=== PATIENT | male | born 1960 | race American Indian/Alaskan Native ===

== ENCOUNTER 2019-01-29 14:42 | Emergency (ER) | payer BC ==
[2019-01-29] MEDS ORDERED: CATAPRES PO ONE (15:29)
[2019-01-29 16:12] VITALS: BP 161/110
--- NOTE | 2019-01-29 16:20 | Emergency Department Report ---
ED General Adult HPI - General Chief complaint: High BP Stated complaint: HBP/DOC ORDERED Time Seen by Provider: 01/29/19 16:12 Source: patient Mode of arrival: Ambulatory Limitations: No Limitations - History of Present Illness Initial comments: 58 y/o male comes in for elevated blood pressure. Patient was schedule for a colonoscopy and his blood pressure was elevated and was sent to ER for evaluation. Patient reports that he did not take his blood pressure medication his morning. Patient denies any TODD, Chest pain or SOB. Severity scale (0 -10): 0 - Related Data Allergies Allergy/AdvReac Type Severity Reaction Status Date / Time No Known Allergies Allergy Unverified 01/29/19 14:43 ED Review of Systems ROS: Stated complaint: HBP/DOC ORDERED Other details as noted in HPI ED Past Medical Hx - Past Medical History Previous Medical History?: Yes Hx Hypertension: Yes - Surgical History Past Surgical History?: Yes Additional Surgical History: hernia repair - Social History Smoking Status: Never Smoker Substance Use Type: None ED Physical Exam - General Limitations: No Limitations ED Course Vital Signs 01/29/19 01/29/19 01/29/19 15:21 15:32 16:09 Temperature 98 F Pulse Rate 64 64 70 Respiratory 20 16 Rate Blood Pressure 183/112 183/112 Blood Pressure 161/110 [Right] O2 Sat by Pulse 98 97 Oximetry ED Medical Decision Making - Medical Decision Making 58 y/o male comes in for elevated blood pressure. Patient was schedule for a colonoscopy and his blood pressure was elevated and was sent to ER for evaluation. Patient reports that he did not take his blood pressure medication his morning. Patient denies any TODD, Chest pain or SOB. Patient was given Clonidine 0.1mg. Patient blood pressure improved. Instructed patient to continue taking his medication. Critical care attestation.: If time is entered above; I have spent that time in minutes in the direct care of this critically ill patient, excluding procedure time. ED Disposition Clinical Impression: HTN (hypertension) Qualifiers: Hypertension type: unspecified Qualified Code(s): I10 - Essential (primary) hypertension Disposition: DC-01 TO HOME OR SELFCARE Is pt being admited?: No Does the pt Need Aspirin: No Condition: Stable Instructions: Hypertension (ED) Additional Instructions: Take medication as prescribed. Referrals: NASREEN SEN MD [Primary Care Provider] - 3-5 Days Your,Primary Care provider [Other] - 3-5 Days
== END 2019-01-29 16:30 | disposition home or self-care (01) ==
LOC: ED 14:42
DX: I10 Essential (primary) hypertension (principal); Z98.890 Other specified postprocedural states
CPT/HCPCS: 99282

== ENCOUNTER 2019-08-07 00:14 | Inpatient (IN) | payer BC, OTHER ==
--- NOTE | 2019-08-07 00:42 | Emergency Department Report ---
ED Neuro Deficit HPI - General Chief Complaint: Neuro Symptoms/Deficit Stated Complaint: FACIAL DROOP/DISORIENTED Time Seen by Provider: 08/07/19 00:35 Source: patient Mode of arrival: Ambulatory Limitations: Physical Limitation - History of Present Illness Initial Comments: 59-year-old male with a past medical history of hypertension presents to [facility] with stroke symptoms. 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 He slept all day and did not feel well so he continued to sleep throughout the night and did not go to work that evening. Tuesday the he also slept all day and did not wake up till noon when he was noted to have nausea, vomiting, and off balance. Patient did try to go to work and at 11 PM the job called to come pick him up because he was not acting right. then noted left-sided facial droop when she picked him up from work. Code stroke called in triage upon patient's evaluation - Related Data Allergies/Adverse Reactions: Allergies Allergy/AdvReac Type Severity Reaction Status Date / Time No Known Allergies Allergy Unverified 01/29/19 14:43 ED Review of Systems ROS: Stated complaint: FACIAL DROOP/DISORIENTED Other details as noted in HPI Comment: All other systems reviewed and negative ED Past Medical Hx - Past Medical History Hx Hypertension: Yes - Surgical History Additional Surgical History: hernia repair - Social History Smoking Status: Never Smoker ED Neuro Physical Exam - General Limitations: Physical Limitation Suspected Stroke: Yes - NIHSS Assessment Interval: Baseline 1a. Level of Consciousness: alert/keenly responsive 1b. LOC Questions: answers both correctly 1c. LOC Commands: performs tasks correctly 2. Best Gaze: normal 3. Visual: no visual loss 4. Facial Palsy: minor paralysis 5b. Motor Arm Right: no drift 5a. Motor Arm Left: drift 6a. Motor Leg Left: drift 6b. Motor Leg Right: no drift 7. Limb Ataxia: absent 8. Sensory: normal 9. Best Language: no aphasia 10. Dysarthria: mild/moderate dysarthria 11. Extinction/Inattention: no abnormality Total Score: 4 Stroke Severity: Minor Stroke - Other Other exam information: General: No acute distress Head: Atraumatic Eyes: normal appearance, pupils equal reactive to light, extraocular movements intact, ENT: Moist mucous membranes, Neck: Normal appearance, no midline tenderness Chest: Clear to auscultation bilaterally CV: Regular rate and rhythm Abdomen: Soft, normal bowel sounds, nontender, nondistended, no rebound or guarding Back: Normal inspection Extremity: Normal inspection infection, full range of motion Neuro: Alert O x 3, see NIHSS Psych: Appropriate behavior Skin: No rash ED Course Vital Signs 08/07/19 00:30 Temperature 98.3 F Pulse Rate 83 Respiratory 13 Rate Blood Pressure 144/94 [Left] O2 Sat by Pulse 97 Oximetry - Lab Data Result diagrams: 08/07/19 00:42 08/07/19 00:42 Lab Results 08/07/19 08/07/19 08/07/19 Range/Units 00:33 00:42 00:42 WBC 12.3 H (4.5-11.0) K/mm3 RBC 5.45 H (3.65-5.03) M/mm3 Hgb 16.0 H (11.8-15.2) gm/dl Hct 46.3 H (35.5-45.6) % MCV 85 (84-94) fl MCH 29 (28-32) pg MCHC 35 H (32-34) % RDW 13.5 (13.2-15.2) % Plt Count 216 (140-440) K/mm3 Lymph % (Auto) 9.0 L (13.4-35.0) % Winkler % (Auto) 3.7 (0.0-7.3) % Eos % (Auto) 0.0 (0.0-4.3) % Baso % (Auto) 0.4 (0.0-1.8) % Lymph # 1.1 L (1.2-5.4) K/mm3 Winkler # 0.5 (0.0-0.8) K/mm3 Eos # 0.0 (0.0-0.4) K/mm3 Baso # 0.0 (0.0-0.1) K/mm3 Seg Neutrophils % 86.9 H (40.0-70.0) % Seg Neutrophils # 10.7 H (1.8-7.7) K/mm3 PT 14.1 (12.2-14.9) Sec. INR 1.08 (0.87-1.13) APTT 24.9 (24.2-36.6) Sec. Thrombin Time 15.7 (15.1-19.6) Sec. Sodium (137-145) mmol/L Potassium (3.6-5.0) mmol/L Chloride (98-107) mmol/L Carbon Dioxide (22-30) mmol/L Anion Gap mmol/L BUN (9-20) mg/dL Creatinine (0.8-1.5) mg/dL Estimated GFR ml/min BUN/Creatinine Ratio % Glucose (75-100) mg/dL POC Glucose 249 H (70-105) Calcium (8.4-10.2) mg/dL Troponin T (0.00-0.029) ng/mL 08/07/19 Range/Units 00:42 WBC (4.5-11.0) K/mm3 RBC (3.65-5.03) M/mm3 Hgb (11.8-15.2) gm/dl Hct (35.5-45.6) % MCV (84-94) fl MCH (28-32) pg MCHC (32-34) % RDW (13.2-15.2) % Plt Count (140-440) K/mm3 Lymph % (Auto) (13.4-35.0) % Winkler % (Auto) (0.0-7.3) % Eos % (Auto) (0.0-4.3) % Baso % (Auto) (0.0-1.8) % Lymph # (1.2-5.4) K/mm3 Winkler # (0.0-0.8) K/mm3 Eos # (0.0-0.4) K/mm3 Baso # (0.0-0.1) K/mm3 Seg Neutrophils % (40.0-70.0) % Seg Neutrophils # (1.8-7.7) K/mm3 PT (12.2-14.9) Sec. INR (0.87-1.13) APTT (24.2-36.6) Sec. Thrombin Time (15.1-19.6) Sec. Sodium 139 (137-145) mmol/L Potassium 4.2 (3.6-5.0) mmol/L Chloride 98.3 (98-107) mmol/L Carbon Dioxide 26 (22-30) mmol/L Anion Gap 19 mmol/L BUN 16 (9-20) mg/dL Creatinine 1.4 (0.8-1.5) mg/dL Estimated GFR > 60 ml/min BUN/Creatinine Ratio 11 % Glucose 264 H (75-100) mg/dL POC Glucose (70-105) Calcium 9.8 (8.4-10.2) mg/dL Troponin T < 0.010 (0.00-0.029) ng/mL - EKG Data -: EKG Interpreted by Me (possible afib rate 88 vs sinus with pac's, will repeat) EKG shows normal: ST-T waves (no stemi) - Radiology Data Radiology results: report reviewed CT HEAD WITHOUT CONTRAST INDICATION : Acute right-sided weakness. Slurred speec h. Possible stroke. TECHNIQUE: Axial, coronal and sagittal CT imaging was performed from the skull apex through the skull base without contrast. All CT scans at this location are performed using CT dose reduction for ALARA by means of automated exposure control. COMPARISON: None available. FINDINGS: PARENCHYMA: A round hypodensity is seen along the right thalamus measuring 1.8 x 1.8 cm. No other acute large territorial infarction is noted. No hemorrhage, extra-axial collection or midline shift is seen. VENTRICLES: Symmetric and normal in size. SOFT TISSUES: No significant abnormality of the included soft tissues/orbits. BONES: No acute osseous abnormality. SINUSES: No significant abnormality. ADDITIONAL FINDINGS: None. IMPRESSION: 1. Indeterminate abnormality along the right thalamus could represent an area of ischemia of uncertain age. An MRI of the brain with and without contrast may be helpful for further evaluation. 2. No other acute intracranial abnormality. - Medical Decision Making ct head with abnormality which could represent subacute ischemia. No hemorrhage reported. Aspirin provided. Patient not a TPA candidate or candidate for intervention at this time. Case discussed with neurologist. See neurology note. Hospitalist informed for admission ekg with possible afib, pt is rate controlled and cant receive heparin due to subacute cva, case rediscussed with hospitalist, cardiology consult will be ordered for am. - Differential Diagnosis CVA, ICH, tumor - Thrombolytic Inclusion/Exclusion Thrombolytic Exclusion Criteria: Symptom Onset > 3 Hours Critical Care Time: No Critical care attestation.: If time is entered above; I have spent that time in minutes in the direct care of this critically ill patient, excluding procedure time. ED Disposition Clinical Impression: CVA (cerebral vascular accident) Disposition: DC-09 OP ADMIT IP TO THIS HOSP Is pt being admited?: Yes Does the pt Need Aspirin: Yes Condition: Stable Time of Disposition: 01:35 (Dr wyatt/hosp)
[2019-08-07 00:47] LABS: Basophils % (Auto) 0.4 % (0.0-1.8); Hematocrit 46.3 % (35.5-45.6); Lymphocytes # (Auto) 1.1 K/mm3 (1.2-5.4); Mean Corpuscular HGB Conc 35 % (32-34); Mean Corpuscular Volume 85 fl (84-94); Monocytes # (Auto) 0.5 K/mm3 (0.0-0.8); Monocytes % (Auto) 3.7 % (0.0-7.3); Platelet Count 216 K/mm3 (140-440); Red Blood Count 5.45 M/mm3 (3.65-5.03); Red Cell Distribution Width 13.5 % (13.2-15.2)
[2019-08-07 00:58] LABS: INR 1.08 (0.87-1.13)
[2019-08-07 00:59] LABS: Partial Thromboplastin Time 24.9 Sec. (24.2-36.6); Thrombin Time 15.7 Sec. (15.1-19.6)
--- NOTE | 2019-08-07 01:02 | Cat Scan Report ---
CT HEAD WITHOUT CONTRAST INDICATION : Acute right-sided weakness. Slurred speech. Possible stroke. TECHNIQUE: Axial, coronal and sagittal CT imaging was performed from the skull apex through the skul l base without contrast. All CT scans at this location are performed using CT dose reduction for ALA RA by means of automated exposure control. COMPARISON: None available. FINDINGS: PARENCHYMA: A round hypodensity is seen along the right thalamus measuring 1.8 x 1.8 cm. No other ac [place] large territorial infarction is noted. No hemorrhage, extra-axial collection or midline shift is seen. VENTRICLES: Symmetric and normal in size. SOFT TISSUES: No significant abnormality of the included soft tissues/orbits. BONES: No acute osseous abnormality. SINUSES: No significant abnormality. ADDITIONAL FINDINGS: None. IMPRESSION: 1. Indeterminate abnormality along the right thalamus could represent an area of ischemia of uncerta in age. An MRI of the brain with and without contrast may be helpful for further evaluation. 2. No other acute intracranial abnormality. CRITICAL RESULT: Time of Discovery (CLIENT EXPERIENCE ADMINISTRATOR/CDT): 23:55 Time of Communication (CLIENT EXPERIENCE ADMINISTRATOR/CDT): 23:58 Licensed Practitioner Receiving Report: Dr. Dutton Read Back Performed: Yes. Signer Name: Alfonzo Rivera MD Signed: 08/07/2019 12:58 AM Workstation Name: [id number]
[2019-08-07 01:04] LABS: BUN/Creatinine Ratio 11; Blood Urea Nitrogen 16 mg/dL (9-20); Calcium 9.8 mg/dL (8.4-10.2); Hemolysis Index 7
--- NOTE | 2019-08-07 01:06 | Emergency Department Report ---
[place] [facility] - Documentation Documentation: [facility] Date of Service: 08/07/2019 00:26:11 Impression: Small Vessel Infarct Comments: Pt presents outside the tPA and TAM treatment window. His LKW was Tuesday morning. Clinical syndrome correlates to the abnormality seen on his HCT in the right thalamus. Stroke espinal is recommended along with MRI w/wo gado to r/o underlying neoplasm vs stroke. Mechanism of Stroke: Not Clear Metrics: Last Known Well: 08/05/2019 07:00:00 [employer] Notification Time: 08/07/2019 00:25:41 Arrival Time: 08/07/2019 00:22:00 Stamp Time: 08/07/2019 00:26:11 Time First Login Attempt: 08/07/2019 00:30:15 Video Start Time: 08/07/2019 00:30:15 Symptoms: left sided weakness NIHSS Start Assessment Time: 08/07/2019 00:31:19 Patient is not a candidate for tPA. Patient was not deemed candidate for tPA thrombolytics because of Last Well Known Above 4.5 Hours. Video End Time: 08/07/2019 00:43:07 CT head was reviewed and results were: right thalamic lesion, unclear etiology, possible infarct Presentation is not suggestive of Large Vessel Occlusive disease. Advanced imaging was not obtained as the presentation was not suggestive of Large Vessel Occlusive Disease. ED Physician notified of diagnostic impression and management plan on 08/07/2019 00:55:30 Our recommendations are outlined below. Recommendations: Activate Stroke Protocol Admission/Order Set Stroke/Telemetry Floor Neuro Checks Bedside Swallow Eval DVT Prophylaxis IV Fluids, Normal Saline Head of Bed Below 30 Degrees Euglycemia and Avoid Hyperthermia (PRN Acetaminophen) Initiate Aspirin 81 MG Daily Recommended Scan: MRI Head with and Without Contrast Lipid Panel to Be Obtained, if Not Done in the Last Three Months Therapies: Physical Therapy, Occupational Therapy, Speech Therapy Assessment When Applicable Dysphaghia Screen: Swallow Evaluation, Bedside NPO Until Swallow Evaluation DVT prophylaxis: Choice of Primary Team Disposition: Follow up with Teleneurology Follow up Sign Out: Discussed with Emergency Department Provider History of Present Illness: Patient is a 59 year old Male. 59 yo M with h/o HTN on baby aspirin PW left sided weakness. The patient had noted his BP had been high on Tuesday. 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 He slept all day and was unable to get out of bed for his Tuesday evening shift. He eventually was able to get out of bed this morning around noon time and his family noted he was falling and had N/V. He made it to work on Tuesday night but he could not drive and his sent him in an Uber. When he got to work, the people there called his to tell her he looked unwell. She then came to pick him up and take him to the ED. CT head was reviewed. Examination: BP(144/94), Blood Glucose(239) 1A: Level of Consciousness - Alert; keenly responsive + 0 1B: Ask Month and Age - Both Questions Right + 0 1C: Blink Eyes & Squeeze Hands - Performs Both Tasks + 0 2: Test Horizontal Extraocular Movements - Normal + 0 3: Test Visual Sotom[place]or - No Visual Loss + 0 4: Test Facial Palsy (Use Grimace if Obtunded) - Minor paralysis (flat nasolabial fold, smile asymmetry) + 1 5A: Test Left Arm Motor Drift - Drift, but doesn't hit bed + 1 5B: Test Right Arm Motor Drift - No Drift for 10 Seconds + 0 6A: Test Left Leg Motor Drift - Drift, but doesn't hit bed + 1 6B: Test Right Leg Motor Drift - No Drift for 5 Seconds + 0 7: Test Limb Ataxia (FNF/Heel-Lugo) - No Ataxia + 0 8: Test Sensation - Normal; No sensory loss + 0 9: Test Language/Aphasia - Normal; No aphasia + 0 10: Test Dysarthria - Mild-Moderate Dysarthria: Slurring but can be understood + 1 11: Test Extinction/Inattention - No abnormality + 0 NIHSS Score: 4 Patient was informed the Neurology Consult would happen via TeleHealth consult by way of interactive audio and video telecommunications and consented to receiving care in this manner. Due to the immediate potential for life-threatening deterioration due to underlying acute neurologic illness, I spent 35 minutes providing critical care. This time includes time for face to face visit via telemedicine, review of medical records, imaging studies and discussion of findings with providers, the patient and/or family. Dr Janna Sweeney [facility] Case [id number]
[2019-08-07] MEDS ORDERED: ASPIRIN 325 MG TAB PO ONE (01:14)
[2019-08-07] MEDS ORDERED: ACETAMINOPHEN 325 MG TAB PO PRN (02:33)
[2019-08-07] MEDS ORDERED: MAGNESIUM HYDROXIDE (MOM) ORAL LIQD UDC PO PRN (02:33)
[2019-08-07] MEDS ORDERED: ONDANSETRON 4 MG/2 ML INJ IV PRN (02:33)
[2019-08-07] MEDS ORDERED: DEXTROSE 50% IN WATER (25GM) 50 ML SYRINGE IV PRN (02:39)
[2019-08-07] MEDS ORDERED: hydrALAZINE 20 MG/1 ML INJ IV PRN (02:40)
[2019-08-07] MEDS ORDERED: SODIUM CHLORIDE 0.45% 1000 ML 1,000 ML IV SCH (03:00)
--- NOTE | 2019-08-07 03:04 | History and Physical Report ---
<BERNARDA CAMACHO - Last Filed: 08/07/19 03:00> History of Present Illness Date of examination: 08/07/19 Date of admission: 08/07/2019 Chief complaint: Left-sided facial droop, suspicion of stroke History of present illness: 59-year-old -[place] male with history of hypertension who presents to [facility] ED with complaints of left facial droop and suspicion for stroke. Patient's is present at bedside and has assisted with providing history. According to patient's patient got him from work around 7 AM Tuesday (08/05/2019) morning in his usual state of health. He complains of not feeling well so he stayed in the bed, rested, and called out of work that night. Patient woke up around noon on Tuesday (08/06/2019) and complained of nausea, vomiting, and feeling like his balance was off. Despite feeling ill patient decided to go to work. Patient's job called around 11 PM and stated that he was not acting like his normal self. Patient's went out to his job to pick him up and it was at this time that his noticed that he had a left sided facial droop. Set of taking patient home patient was transferred to our facility for further evaluation and treatment. At the time of my examination patient is sitting up in bed. He is able to maintain conversation and follow instructions. He displays 5/5 motor strength with no drift. Patient has left-sided facial droop. Patient was evaluated by telemetry neurology and recommendations appreciated. Will admit for further evaluation and treatment. Past History Past Medical History: hypertension Past Surgical History: hernia repair Social history: Family history: no significant family history Medications and Allergies Allergies Allergy/AdvReac Type Severity Reaction Status Date / Time No Known Allergies Allergy Unverified 01/29/19 14:43 Active Meds: Active Medications Acetaminophen (Tylenol) 650 mg PO Q4H PRN PRN Reason: Pain, Mild (1-3) Amlodipine Besylate (Amlodipine) 10 mg PO QDAY [facility] Aspirin (Baby Aspirin) 81 mg PO QDAY GL[facility] Atorvastatin Calcium (Lipitor) 40 mg PO QHS [facility] Dextrose (D50w (25gm) Syringe) 50 ml IV Q30MIN PRN; Protocol PRN Reason: Hypoglycemia Heparin Sodium (Porcine) (Heparin) 5,000 unit SUB-Q Q12HR GLORY Hydralazine HCl (Apresoline) 10 mg IV Q4HR PRN PRN Reason: Blood Pressure Sodium Chloride (Nacl 0.45% 1000 Ml) 1,000 mls @ 75 mls/hr IV DIRECT GLORY Stop: 08/07/19 11:00 Insulin Human Lispro (Humalog) 0 unit SUB-Q ACHS GLORY; Protocol Magnesium Hydroxide (Milk Of Magnesia) 30 ml PO Q4H PRN PRN Reason: Constipation Ondansetron HCl (Zofran) 4 mg IV Q8H PRN PRN Reason: Nausea And Vomiting Sodium Chloride (Sodium Chloride Flush Syringe 10 Ml) 10 ml IV PRN PRN PRN Reason: LINE FLUSH Review of Systems All systems: negative Eyes: right: blurred vision Cardiovascular: high blood pressure Gastrointestinal: nausea, vomiting Neurological: gait dysfunction, other (Left-sided facial droop) Exam - Physical Exam Narrative exam: Physical exam General appearance: Present: No acute distress, alert and oriented 3, well- nourished, adult male - EENT Eyes: Present: PERRL, EOM intact ENT: hearing intact, normal dentition, left-sided facial droop - Neck Neck: Present: supple, normal ROM - Respiratory Respiratory effort: Non-labored Respiratory: Clear throughout - Cardiovascular Heart rate: 83 (bpm) Rhythm: Sinus rhythm Heart Sounds: Present: S1 & S2. Absent: rub, click - Extremities Extremities: no ischemia, pulses intact, - Peripheral Assessment Peripheral Pulses: within normal limits - Abdominal General gastrointestinal: soft, non-tender, normal bowel sounds - Integumentary Integumentary: Present: warm, dry - Musculoskeletal Musculoskeletal: Able to move all extremities, 5/5 motor strength in all extremities -Neurological Neurological: CN II-XII intact - Psychiatric Psychiatric: Appropriate for situation ,cooperative - Constitutional Vitals: Temp Pulse Resp BP Pulse Ox 98.3 F 82 12 155/98 100 08/07/19 00:30 08/07/19 02:30 08/07/19 02:30 08/07/19 02:30 08/07/19 02:30 Results - Labs CBC & Chem 7: 08/07/19 00:42 08/07/19 00:42 Labs: Laboratory Last Values WBC 12.3 K/mm3 (4.5-11.0) H 08/07/19 00:42 RBC 5.45 M/mm3 (3.65-5.03) H 08/07/19 00:42 Hgb 16.0 gm/dl (11.8-15.2) H 08/07/19 00:42 Hct 46.3 % (35.5-45.6) H 08/07/19 00:42 MCV 85 fl (84-94) 08/07/19 00:42 MCH 29 pg (28-32) 08/07/19 00:42 MCHC 35 % (32-34) H 08/07/19 00:42 RDW 13.5 % (13.2-15.2) 08/07/19 00:42 Plt Count 216 K/mm3 (140-440) 08/07/19 00:42 Lymph % (Auto) 9.0 % (13.4-35.0) L 08/07/19 00:42 [place] % (Auto) 3.7 % (0.0-7.3) 08/07/19 00:42 Eos % (Auto) 0.0 % (0.0-4.3) 08/07/19 00:42 Baso % (Auto) 0.4 % (0.0-1.8) 08/07/19 00:42 Lymph # 1.1 K/mm3 (1.2-5.4) L 08/07/19 00:42 [place] # 0.5 K/mm3 (0.0-0.8) 08/07/19 00:42 Eos # 0.0 K/mm3 (0.0-0.4) 08/07/19 00:42 Baso # 0.0 K/mm3 (0.0-0.1) 08/07/19 00:42 Seg Neutrophils % 86.9 % (40.0-70.0) H 08/07/19 00:42 Seg Neutrophils # 10.7 K/mm3 (1.8-7.7) H 08/07/19 00:42 PT 14.1 Sec. (12.2-14.9) 08/07/19 00:42 INR 1.08 (0.87-1.13) 08/07/19 00:42 APTT 24.9 Sec. (24.2-36.6) 08/07/19 00:42 Thrombin Time 15.7 Sec. (15.1-19.6) 08/07/19 00:42 Sodium 139 mmol/L (137-145) 08/07/19 00:42 Potassium 4.2 mmol/L (3.6-5.0) 08/07/19 00:42 Chloride 98.3 mmol/L (98-107) 08/07/19 00:42 Carbon Dioxide 26 mmol/L (22-30) 08/07/19 00:42 Anion Gap 19 mmol/L 08/07/19 00:42 BUN 16 mg/dL (9-20) 08/07/19 00:42 Creatinine 1.4 mg/dL (0.8-1.5) 08/07/19 00:42 Estimated GFR > 60 ml/min 08/07/19 00:42 BUN/Creatinine Ratio 11 % 08/07/19 00:42 Glucose 264 mg/dL (75-100) H 08/07/19 00:42 POC Glucose 249 (70-105) H 08/07/19 00:33 Calcium 9.8 mg/dL (8.4-10.2) 08/07/19 00:42 Troponin T < 0.010 ng/mL (0.00-0.029) 08/07/19 00:42 - Imaging and Cardiology Imaging and Cardiology: CT Head: FINDINGS: PARENCHYMA: A round hypodensity is seen along the right thalamus measuring 1.8 x 1.8 cm. No other acute large territorial infarction is noted. No hemorrhage, extra-axial collection or midline shift is seen. VENTRICLES: Symmetric and normal in size. SOFT TISSUES: No significant abnormality of the included soft tissues/orbits. BONES: No acute osseous abnormality. SINUSES: No significant abnormality. ADDITIONAL FINDINGS: None. IMPRESSION: 1. Indeterminate abnormality along the right thalamus could represent an area of ischemia of uncertain age. An MRI of the brain with and without contrast may be helpful for further evaluation. 2. No other acute intracranial abnormality. Assessment and Plan Assessment and plan: 59-year-old -[place] male with history of hypertension who presents to [facility] ED with complaints of left facial droop and suspicion for stroke. CVA -CT Head shows Indeterminate abnormality along the right thalamus could represent an area of ischemia of uncertain age. -Tele-Neurology consulted; recommendations appreciated -Not a candidate for TPA, last known normal greater than 4.5 hours ago -MRI Head, bilateral carotid Doppler, Echo pending -Troponin negative x1, will continue to trend -Neurology consulted -Neuro Checks -PT/OT eval pending -Lipid panel pending -Start ASA and Statin -Continue supportive care Hypertensive urgency -BP on admission 183/112 -Hx Hypertension malignant -Continue to monitor BP -Resume home antihypertensive meds to optimize BP once medication reconciliation has been updated -IV antihypertensive when necessary Dehydration -Hemoglobin 16.9 -Start IVF Leukocytosis -WBC on admission 12.3 -Likely inflammatory response -Afebrile -Will hold off on starting abx for now -Continue to monitor CBC DVT PPX -on Heparin Advance Directives: No VTE prophylaxis?: Chemical Plan of care discussed with patient/family: Yes <MADISON CHRISTENSEN - Last Filed: 08/07/19 05:34> History of Present Illness Date of admission: 08/07/19 02:34 Medications and Allergies Active Meds: Active Medications Acetaminophen (Tylenol) 650 mg PO Q4H PRN PRN Reason: Pain, Mild (1-3) Amlodipine Besylate (Amlodipine) 10 mg PO QDAY [facility] Aspirin (Baby Aspirin) 81 mg PO QDAY [facility] Atorvastatin Calcium (Lipitor) 40 mg PO QHS [facility] Dextrose (D50w (25gm) Syringe) 0 ml IV Q30MIN PRN; Protocol PRN Reason: Hypoglycemia Heparin Sodium (Porcine) (Heparin) 5,000 unit SUB-Q Q12HR [facility] Hydralazine HCl (Apresoline) 10 mg IV Q4H PRN PRN Reason: Blood Pressure Sodium Chloride (Nacl 0.45% 1000 Ml) 1,000 mls @ 75 mls/hr IV DIRECT [facility] Stop: 08/07/19 11:00 Insulin Human Lispro (Humalog) 0 unit SUB-Q ACHS GLORY; Protocol Magnesium Hydroxide (Milk Of Magnesia) 30 ml PO Q4H PRN PRN Reason: Constipation Ondansetron HCl (Zofran) 4 mg IV Q8H PRN PRN Reason: Nausea And Vomiting Sodium Chloride (Sodium Chloride Flush Syringe 10 Ml) 10 ml IV PRN PRN PRN Reason: LINE FLUSH Exam - Constitutional Vitals: Temp Pulse Resp BP Pulse Ox 98.0 F 82 18 145/98 98 08/07/19 04:34 08/07/19 04:34 08/07/19 04:48 08/07/19 04:34 08/07/19 04:34 Results - Labs CBC & Chem 7: 08/07/19 00:42 08/07/19 00:42 Labs: Laboratory Last Values WBC 12.3 K/mm3 (4.5-11.0) H 08/07/19 00:42 RBC 5.45 M/mm3 (3.65-5.03) H 08/07/19 00:42 Hgb 16.0 gm/dl (11.8-15.2) H 08/07/19 00:42 Hct 46.3 % (35.5-45.6) H 08/07/19 00:42 MCV 85 fl (84-94) 08/07/19 00:42 MCH 29 pg (28-32) 08/07/19 00:42 MCHC 35 % (32-34) H 08/07/19 00:42 RDW 13.5 % (13.2-15.2) 08/07/19 00:42 Plt Count 216 K/mm3 (140-440) 08/07/19 00:42 Lymph % (Auto) 9.0 % (13.4-35.0) L 08/07/19 00:42 [place] % (Auto) 3.7 % (0.0-7.3) 08/07/19 00:42 Eos % (Auto) 0.0 % (0.0-4.3) 08/07/19 00:42 Baso % (Auto) 0.4 % (0.0-1.8) 08/07/19 00:42 Lymph # 1.1 K/mm3 (1.2-5.4) L 08/07/19 00:42 [place] # 0.5 K/mm3 (0.0-0.8) 08/07/19 00:42 Eos # 0.0 K/mm3 (0.0-0.4) 08/07/19 00:42 Baso # 0.0 K/mm3 (0.0-0.1) 08/07/19 00:42 Seg Neutrophils % 86.9 % (40.0-70.0) H 08/07/19 00:42 Seg Neutrophils # 10.7 K/mm3 (1.8-7.7) H 08/07/19 00:42 PT 14.1 Sec. (12.2-14.9) 08/07/19 00:42 INR 1.08 (0.87-1.13) 08/07/19 00:42 APTT 24.9 Sec. (24.2-36.6) 08/07/19 00:42 Thrombin Time 15.7 Sec. (15.1-19.6) 08/07/19 00:42 Sodium 139 mmol/L (137-145) 08/07/19 00:42 Potassium 4.2 mmol/L (3.6-5.0) 08/07/19 00:42 Chloride 98.3 mmol/L (98-107) 08/07/19 00:42 Carbon Dioxide 26 mmol/L (22-30) 08/07/19 00:42 Anion Gap 19 mmol/L 08/07/19 00:42 BUN 16 mg/dL (9-20) 08/07/19 00:42 Creatinine 1.4 mg/dL (0.8-1.5) 08/07/19 00:42 Estimated GFR > 60 ml/min 08/07/19 00:42 BUN/Creatinine Ratio 11 % 08/07/19 00:42 Glucose 264 mg/dL (75-100) H 08/07/19 00:42 POC Glucose 249 (70-105) H 08/07/19 00:33 Hemoglobin A1c 6.8 % (4-6) H 08/07/19 04:08 Calcium 9.8 mg/dL (8.4-10.2) 08/07/19 00:42 Troponin T < 0.010 ng/mL (0.00-0.029) 08/07/19 04:08 Assessment and Plan Assessment and plan: Patient seen and examined, agree with plan as stated above, in addition the EKG shows possible A. fib, consult cardiology, check TSH
[2019-08-07] MEDS: INSULIN LISPRO 100 UNIT/ML SUB-Q SCH ×4 (07:30→22:50)
--- NOTE | 2019-08-07 10:52 | Consultation ---
History of Present Illness Consult date: 08/07/19 Consult reason: atrial fibrillation History of present illness: This is a 59-year old male with a history of hypertension who is admitted with suspected CVA and awaits neurology evaluation. A cardiac consultation has been requested for abnormal ECG. On review, his presenting ECG is atrial fibrillation, rate 88. The chronicity is uncertain. Patient denies a history of arrhythmias. He denies chest pain and shortness of breath. Telemetry currently shows atrial fibrillation with a well controlled ventricular. Past History Past Medical History: hypertension Past Surgical History: hernia repair Social history: Family history: no significant family history Medications and Allergies Allergies Allergy/AdvReac Type Severity Reaction Status Date / Time No Known Allergies Allergy Unverified 01/29/19 14:43 Active Meds: Active Medications Acetaminophen (Tylenol) 650 mg PO Q4H PRN PRN Reason: Pain, Mild (1-3) Amlodipine Besylate (Amlodipine) 10 mg PO QDAY [facility] Aspirin (Baby Aspirin) 81 mg PO QDAY [facility] Atorvastatin Calcium (Lipitor) 40 mg PO QHS [facility] Dextrose (D50w (25gm) Syringe) 0 ml IV Q30MIN PRN; Protocol PRN Reason: Hypoglycemia Heparin Sodium (Porcine) (Heparin) 5,000 unit SUB-Q Q12HR [facility] Hydralazine HCl (Apresoline) 10 mg IV Q4H PRN PRN Reason: Blood Pressure Sodium Chloride (Nacl 0.45% 1000 Ml) 1,000 mls @ 75 mls/hr IV DIRECT [facility] Stop: 08/07/19 11:00 Insulin Human Lispro (Humalog) 0 unit SUB-Q ACHS [facility]; Protocol Magnesium Hydroxide (Milk Of Magnesia) 30 ml PO Q4H PRN PRN Reason: Constipation Ondansetron HCl (Zofran) 4 mg IV Q8H PRN PRN Reason: Nausea And Vomiting Sodium Chloride (Sodium Chloride Flush Syringe 10 Ml) 10 ml IV PRN PRN PRN Reason: LINE FLUSH Physical Examination Vital Signs Temp Pulse Resp BP Pulse Ox 98.1 F 93 H 18 148/96 96 08/07/19 00:20 08/07/19 00:20 08/07/19 00:20 08/07/19 00:20 08/07/19 00:20 General appearance: no acute distress HEENT: Positive: PERRL Neck: Positive: trachea midline Cardiac: Positive: irregularly irregular Lungs: Positive: Decreased Breath Sounds Neuro: Positive: Grossly Intact Extremities: Absent: edema Results 08/07/19 00:42 08/07/19 00:42 Coagulation 08/07/19 Range/Units 00:42 PT 14.1 (12.2-14.9) Sec. INR 1.08 (0.87-1.13) APTT 24.9 (24.2-36.6) Sec. CBC 08/07/19 Range/Units 00:42 WBC 12.3 H (4.5-11.0) K/mm3 RBC 5.45 H (3.65-5.03) M/mm3 Hgb 16.0 H (11.8-15.2) gm/dl Hct 46.3 H (35.5-45.6) % Plt Count 216 (140-440) K/mm3 Lymph # 1.1 L (1.2-5.4) K/mm3 [place] # 0.5 (0.0-0.8) K/mm3 Eos # 0.0 (0.0-0.4) K/mm3 Baso # 0.0 (0.0-0.1) K/mm3 Comprehensive Metabolic Panel 08/07/19 Range/Units 00:42 Sodium 139 (137-145) mmol/L Potassium 4.2 (3.6-5.0) mmol/L Chloride 98.3 (98-107) mmol/L Carbon Dioxide 26 (22-30) mmol/L BUN 16 (9-20) mg/dL Creatinine 1.4 (0.8-1.5) mg/dL Glucose 264 H (75-100) mg/dL Calcium 9.8 (8.4-10.2) mg/dL Assessment and Plan Acute CVA Atrial fibrillation, uncertain duration Hypertension
[2019-08-07] MEDS: ASPIRIN 81 MG TAB CHEW PO SCH (11:09)
[2019-08-07] MEDS: amLODIPine 10 MG TAB PO SCH (11:09)
[2019-08-07] MEDS: HEPARIN 5,000 UNIT/1 ML VIAL SUB-Q SCH ×2 (11:09→22:50)
--- NOTE | 2019-08-07 11:12 | Vascular Lab Report ---
BILATERAL CAROTID DOPPLER ULTRASOUND INDICATION : stroke TECHNIQUE: Grayscale and color Doppler imaging performed through the neck. COMPARISON: None FINDINGS: Right: There is no significant atherosclerotic disease. Peak systolic velocity in the CCA is 76 cm/ s with end-diastolic velocity of 21 cm/s. Peak systolic velocity in the proximal ICA is 51 cm/s with end-diastolic velocity of 16 cm/s. ICA to CCA ratio is less than 2. There is antegrade flow in the E CA and the vertebral artery. Left: There is no significant atherosclerotic disease. Peak systolic velocity in the CCA is 69 cm/s w ith end-diastolic velocity of 13 cm/s. Peak systolic velocity in the proximal ICA is 60 cm/s with end -diastolic velocity of 30 cm/s. ICA to CCA ratio is less than 2. There is antegrade flow in the ECA and the vertebral artery. IMPRESSION: No hemodynamically significant stenosis by NASCET criteria. Signer Name: Adebayo Euceda Jr, MD Signed: 08/07/2019 11:08 AM Workstation Name: [id number]
--- NOTE | 2019-08-07 13:12 | Progress Note ---
Assessment and Plan Assessment and plan: 59-year-old -[place] male with history of hypertension who presents to [facility] ED with complaints of left facial droop and suspicion for stroke. --Acute CVA; With left facial droop, left upper and lower extremity weakness Not a candidate for TPA Neuro work-up is in progress Aspirin and statin Physical therapy occupational therapy speech therapy Neurology following, rehab --Atrial fibrillation with rate controlled; Continue beta-blockers, hold on anticoagulation in view of new stroke Prevent hemorrhagic conversion Neuro recommend start anticoagulation with Eliquis starting from 08/16/2019 --Hypertensive urgency; present on admission Maintain blood pressures per stroke protocol Closely monitor --Dyslipidemia; continue statin Low-cholesterol diet --Leukocytosis; --DVT prophylaxis;; Closely monitor and adjust management as needed Neurology, cardiology consults and recommendations noted and appreciated Plan of care reviewed with the patient, family and patient's nurse Advance Directives: No VTE prophylaxis?: Chemical Plan of care discussed with patient/family: Yes History Interval history: Patient seen and examined medical records reviewed Admitted with acute CVA and neuro symptoms Not a candidate for TPA Patient has left-sided facial droop and unsteady gait Vital signs noted Hospitalist Physical - Constitutional Vitals: Temp Pulse Resp BP Pulse Ox 97.8 F 71 14 172/105 98 08/07/19 11:37 08/07/19 11:37 08/07/19 11:37 08/07/19 11:37 08/07/19 11:37 General appearance: Present: mild distress, well-nourished, other (Left facial droop) - EENT Eyes: Present: PERRL, EOM intact - Neck Neck: Present: supple, normal ROM - Respiratory Respiratory effort: normal Respiratory: bilateral: diminished, negative: rales, rhonchi, wheezing - Cardiovascular Rhythm: irregularly irregular Heart Sounds: Present: S1 & S2 - Extremities Extremities: no ischemia, No edema - Abdominal General gastrointestinal: soft, non-tender, non-distended, normal bowel sounds - Integumentary Integumentary: Present: clear, warm - Psychiatric Psychiatric: appropriate mood/affect, cooperative - Neurologic Neurologic: other (Left facial droop, left upper and lower extremity weakness) Results - Labs CBC & Chem 7: 08/07/19 00:42 08/07/19 00:42 Labs: Laboratory Last Values WBC 12.3 K/mm3 (4.5-11.0) H 08/07/19 00:42 RBC 5.45 M/mm3 (3.65-5.03) H 08/07/19 00:42 Hgb 16.0 gm/dl (11.8-15.2) H 08/07/19 00:42 Hct 46.3 % (35.5-45.6) H 08/07/19 00:42 MCV 85 fl (84-94) 08/07/19 00:42 MCH 29 pg (28-32) 08/07/19 00:42 MCHC 35 % (32-34) H 08/07/19 00:42 RDW 13.5 % (13.2-15.2) 08/07/19 00:42 Plt Count 216 K/mm3 (140-440) 08/07/19 00:42 Lymph % (Auto) 9.0 % (13.4-35.0) L 08/07/19 00:42 [place] % (Auto) 3.7 % (0.0-7.3) 08/07/19 00:42 Eos % (Auto) 0.0 % (0.0-4.3) 08/07/19 00:42 Baso % (Auto) 0.4 % (0.0-1.8) 08/07/19 00:42 Lymph # 1.1 K/mm3 (1.2-5.4) L 08/07/19 00:42 [place] # 0.5 K/mm3 (0.0-0.8) 08/07/19 00:42 Eos # 0.0 K/mm3 (0.0-0.4) 08/07/19 00:42 Baso # 0.0 K/mm3 (0.0-0.1) 08/07/19 00:42 Seg Neutrophils % 86.9 % (40.0-70.0) H 08/07/19 00:42 Seg Neutrophils # 10.7 K/mm3 (1.8-7.7) H 08/07/19 00:42 PT 14.1 Sec. (12.2-14.9) 08/07/19 00:42 INR 1.08 (0.87-1.13) 08/07/19 00:42 APTT 24.9 Sec. (24.2-36.6) 08/07/19 00:42 Thrombin Time 15.7 Sec. (15.1-19.6) 08/07/19 00:42 Sodium 139 mmol/L (137-145) 08/07/19 00:42 Potassium 4.2 mmol/L (3.6-5.0) 08/07/19 00:42 Chloride 98.3 mmol/L (98-107) 08/07/19 00:42 Carbon Dioxide 26 mmol/L (22-30) 08/07/19 00:42 Anion Gap 19 mmol/L 08/07/19 00:42 BUN 16 mg/dL (9-20) 08/07/19 00:42 Creatinine 1.4 mg/dL (0.8-1.5) 08/07/19 00:42 Estimated GFR > 60 ml/min 08/07/19 00:42 BUN/Creatinine Ratio 11 % 08/07/19 00:42 Glucose 264 mg/dL (75-100) H 08/07/19 00:42 POC Glucose 105 (70-105) 08/07/19 11:16 Hemoglobin A1c 6.8 % (4-6) H 08/07/19 04:08 Calcium 9.8 mg/dL (8.4-10.2) 08/07/19 00:42 Troponin T < 0.010 ng/mL (0.00-0.029) 08/07/19 04:08 Active Medications - Current Medications Current Medications: Generic Name Dose Route Start Last Admin Trade Name Freq PRN Reason Stop Dose Admin Acetaminophen 650 mg 08/07/19 02:33 Tylenol PO Q4H PRN Pain, Mild (1-3) Amlodipine Besylate 10 mg 08/07/19 10:00 08/07/19 11:09 Amlodipine PO 10 mg QDAY GLORY Administration Aspirin 81 mg 08/07/19 10:00 08/07/19 11:09 Baby Aspirin PO 81 mg QDAY [facility]ORY Administration Atorvastatin Calcium 40 mg 08/07/19 22:00 Lipitor PO QHS [facility] Dextrose 0 ml 08/07/19 02:39 D50w (25gm) Syringe IV Q30MIN PRN Hypoglycemia Protocol Heparin Sodium (Porcine) 5,000 unit 08/07/19 10:00 08/07/19 11:09 Heparin SUB-Q 5,000 unit Q12HR GLORY Administration Hydralazine HCl 10 mg 08/07/19 02:40 Apresoline IV Q4H PRN Blood Pressure Insulin Human Lispro 0 unit 08/07/19 07:30 08/07/19 11:37 Humalog SUB-Q Not Given ACHS GLORY Protocol Magnesium Hydroxide 30 ml 08/07/19 02:33 Milk Of Magnesia PO Q4H PRN Constipation Ondansetron HCl 4 mg 08/07/19 02:33 Zofran IV Q8H PRN Nausea And Vomiting Sodium Chloride 10 ml 08/07/19 02:33 Sodium Chloride Flush Syringe 10 Ml IV PRN PRN LINE FLUSH Nutrition/Malnutrition Assess - Dietary Evaluation Nutrition/Malnutrition Findings: Nutrition Notes Start: 08/07/19 12:16 Freq: Status: Active Protocol: Document 08/07/19 12:16 CC (Rec: 08/07/19 12:19 CC [id number]) Co-Sign 08/07/19 12:16 LP Nutrition Notes Need for Assessment generated from: MD Order,Education Initial or Follow up Brief Note Current Diagnosis Diabetes,Hypertension,Stroke Current Diet cardiac/ const CHO Labs/Tests HbA1c 6.8 BG 264 Pertinent Medications reviewed Weight Status Appropriate Subjective/Other Information MD consult for diet education. Pt not in room at time of visit will f/u for diet education. Nutrition Intervention Anticipated Discharge Needs: cardiac/const CHO Follow-Up By: 08/08/19 Additional Comments F/U for diet education, assesment
--- NOTE | 2019-08-07 17:28 | Consultation ---
History of Present Illness Consult date: 08/07/19 Reason for Consult: Left facial droop, unsteady gait Chief complaint: Left facial droop, unsteady gait History of present illness: Patient is a 59-year-old man with a history of hypertension. He was last known well on August 05, 2019, after he returned from work, that morning. He was meant to go to work that evening, however he was not feeling well, as he felt fatigued, and therefore he did not go to work. Yesterday at noon, the patient awoke, and was having symptoms of nausea, vomiting, and was off balance. His noted that he had a left facial droop. The patient was then brought to [facility] for further evaluation. Today, the patient is feeling better, however he continues to have left facial droop. Patient was found to have atrial fibrillation on telemetry. The patient states that he does take aspirin at home, however does not take it regularly. He is taken aspirin about 1 time in the last week. Past History Past Medical History: hypertension Past Surgical History: hernia repair Social history: , lives with family Family history: no significant family history Medications and Allergies Allergies Allergy/AdvReac Type Severity Reaction Status Date / Time No Known Allergies Allergy Unverified 01/29/19 14:43 Active Meds: Active Medications Acetaminophen (Tylenol) 650 mg PO Q4H PRN PRN Reason: Pain, Mild (1-3) Amlodipine Besylate (Amlodipine) 10 mg PO QDAY [facility] Last Admin: 08/07/19 11:09 Dose: 10 mg Documented by: Aspirin (Baby Aspirin) 81 mg PO QDAY [facility] Last Admin: 08/07/19 11:09 Dose: 81 mg Documented by: Atorvastatin Calcium (Lipitor) 40 mg PO QHS [facility] Dextrose (D50w (25gm) Syringe) 0 ml IV Q30MIN PRN; Protocol PRN Reason: Hypoglycemia Heparin Sodium (Porcine) (Heparin) 5,000 unit SUB-Q Q12HR [facility] Last Admin: 08/07/19 11:09 Dose: 5,000 unit Documented by: Hydralazine HCl (Apresoline) 10 mg IV Q4H PRN PRN Reason: Blood Pressure Insulin Human Lispro (Humalog) 0 unit SUB-Q ACHS [facility]; Protocol Last Admin: 08/07/19 16:31 Dose: Not Given Documented by: Magnesium Hydroxide (Milk Of Magnesia) 30 ml PO Q4H PRN PRN Reason: Constipation Ondansetron HCl (Zofran) 4 mg IV Q8H PRN PRN Reason: Nausea And Vomiting Sodium Chloride (Sodium Chloride Flush Syringe 10 Ml) 10 ml IV PRN PRN PRN Reason: LINE FLUSH Review of Systems All systems: negative Neurological: weakness (Left facial weakness), balance difficulties Physical Examination - Vital Signs Vital Signs: Vital Signs Temp Pulse Resp BP Pulse Ox 98.1 F 93 H 18 148/96 96 08/07/19 00:20 08/07/19 00:20 08/07/19 00:20 08/07/19 00:20 08/07/19 00:20 - Physical Exam Narrative exam: Patient is alert, awake, oriented x4, follows complex commands. No dysarthria or aphasia noted. PERRL, EOMI, VF F, tongue midline, bilaterally intact to LT, left upper and lower facial weakness noted. 5/5 strength in all extremities. Bilaterally intact light touch. Bilaterally intact to FTN and HTS. 2+ reflexes throughout. - Constitutional General appearance: comfortable - EENT EENT: Present: ATNC, PERRL, mucous membranes moist, hearing intact, vision intact - Respiratory Respiratory: Present: lungs clear, normal breath sounds - Cardiovascular Cardiovascular: Present: normal S1, normal S2, other (Tachycardia) Extremities: Present: no clubbing, cyanosis, no inflammation - Gastrointestinal Gastrointestinal: Present: normoactive bowel sounds, soft, non-tender - Integumentary Integumentary: Present: normal - Musculoskeletal Musculoskeletal: Present: no fluid collection - Psychiatric Psychiatric: Present: mood/affect appropriate - Level of Consciousness 1a. Level of Consciousness: alert/keenly responsive - LOC Questions 1b. LOC Questions: answers both correctly - LOC Command 1c. LOC Commands: performs tasks correctly - Best Gaze 2. Best Gaze: normal - Visual 3. Visual: no visual loss - Facial Palsy 4. Facial Palsy: unilateral complete paralysis - Motor Arm 5a. Motor Arm Left: no drift 5b. Motor Arm Right: no drift - Motor Leg 6a. Motor Leg Left: no drift 6b. Motor Leg Right: no drift - Limb Ataxia 7. Limb Ataxia: absent - Sensory 8. Sensory: normal - Best Language 9. Best Language: no aphasia - Dysarthria 10. Dysarthria: normal - Extinction and Inattention 11. Extinction/Inattention: no abnormality - Scoring Total Score: 3 Stroke Severity: Minor Stroke Results - Laboratory Findings CBC and BMP: 08/07/19 00:42 08/07/19 00:42 Abnormal Lab Findings: Abnormal Labs 08/07/19 08/07/19 08/07/19 00:33 00:42 00:42 WBC 12.3 H RBC 5.45 H Hgb 16.0 H Hct 46.3 H MCHC 35 H Lymph % (Auto) 9.0 L Lymph # 1.1 L Seg Neutrophils % 86.9 H Seg Neutrophils # 10.7 H Glucose 264 H POC Glucose 249 H Hemoglobin A1c 08/07/19 08/07/19 08/07/19 00:50 04:08 16:05 WBC RBC Hgb Hct MCHC Lymph % (Auto) Lymph # Seg Neutrophils % Seg Neutrophils # Glucose POC Glucose 239 H 122 H Hemoglobin A1c 6.8 H Assessment and Plan Patient is a 59-year-old man with a history of hypertension, who presents with imbalance and left facial droop. According the patient's clinical findings, the patient has had an acute ischemic stroke. Further, telemetry revealed atrial fibrillation. Plan: 1. Stroke: - MRI brain: Revealed right thalamic stroke with small area of hemorrhagic transformation, and also left cerebellar stroke. - CTA head/neck: Pending - CT head: Right thalamic stroke. - Echo: EF 55 to 60%, LA normal size, bubble study negative. - Cont. ASA 81 mg daily. This will be stopped when patient is started on anticoagulation. -Due to area of hemorrhagic transformation of ischemic stroke in right thalamus, would recommend for patient to be started on anticoagulation on August 16, 2019, to reduce risk of further hemorrhagic transformation. Would recommend Eliquis, if okay with cardiology. Once anticoagulation is started, aspirin can be stopped at that time. -Carotid ultrasound: No significant stenosis. - Cont. statin. LDL goal <70 - Telemetry monitoring while in house - PT/OT/ST - DVT Ppx: Recommend lovenox 2. Hypertension: - Recommend BP goal of <220/120 to allow for permissive HTN for next 24 hours. Can target normotension after that. - Will continue to monitor patient. Thank you for allowing me to take part in the care of this patient. Tha Taylor MD Neurology
--- NOTE | 2019-08-07 18:11 | Magnetic Resonance Report ---
MRI BRAIN WITHOUT CONTRAST INDICATION / CLINICAL INFORMATION: stroke. Symptoms include left facial droop. TECHNIQUE: Multiplanar, multisequence MR images of the brain were obtained. COMPARISON: None available. FINDINGS: BRAIN / INTRACRANIAL CONTENTS: In the right thalamus, there is a focal area of signal abnormality wit h internal hemosiderin deposition, internal T2 isointensity, and peripheral hyperintensity. There is no true restricted diffusion in this lesion. This measures 2.0 cm in greatest dimension. There are also some small lacunar infarcts in the left posterior cerebellar hemisphere. It is no asso ciated hemorrhage or adverse mass effect involving these infarcts. Ventricular and cisternal size appears for age. CRANIOCERVICAL JUNCTION: No significant abnormality. VASCULAR FLOW-VOIDS: No significant abnormality. ORBITS: No significant abnormality of visualized orbits. SINUSES / MASTOIDS: No significant abnormality of visualized sinuses and mastoid air cells. ADDITIONAL FINDINGS: None. IMPRESSION: 1. Approximately 2 cm area of signal abnormality in the right thalamus. The imaging characteristics a re not definite but this most likely represents a subacute infarct with some internal subacute to chr onic hemorrhage. Another consideration would be a mass lesion but this is considered to be less likel y. Follow-up exam in 3-4 weeks without and with contrast months to evaluate for interval change is re commended. 2. Additional tiny acute lacunar infarcts in the left posterior cerebellar hemisphere. Signer Name: Bautista Bruce MD Signed: 08/07/2019 6:07 PM Workstation Name: [id number]
--- NOTE | 2019-08-07 18:46 | Cat Scan Report ---
CTA HEAD AND NECK WITH CONTRAST HISTORY: Stroke. COMPARISON: Head CT and brain MRI done earlier on 08/07/2019 TECHNIQUE: All CT scans at this location are performed using CT dose reduction for ALARA by means of automated exposure control.. 3-D/MIP reformats postprocessed. Percentage stenosis is determined by d irect quantitative measurements of diseased internal carotid artery diameter compared with normal dis catarino internal carotid artery reference segments or by criteria similar to NASCET where applicable. CONTRAST: 100 ml of Omnipaque 350 FINDINGS: CTA HEAD: Intracranial vertebral arteries: No significant abnormality. Basilar artery: No significant abnormality. Posterior cerebral arteries: No significant abnormality. Intracranial internal carotid arteries: No significant abnormality. Anterior cerebral arteries: No significant abnormality. Middle cerebral arteries: No significant abnormality. Dural venous sinuses:Not optimally opacified. No significant abnormality. CTA NECK: Aortic arch: No significant abnormality. Cervical vertebral arteries: No significant abnormality. Common carotid arteries: No significant abnormality. Cervical internal carotid arteries: No significant abnormality. Additional findings: None. IMPRESSION: 1. There is no significant atherosclerotic disease, stenosis, or large vessel occlusion throughout th e cervical or intracranial arteries. Signer Name: Bautista Bruce MD Signed: 08/07/2019 6:41 PM Workstation Name: [id number]
[2019-08-08 06:29] LABS: Chol/HDL Ratio 3.4 %
[2019-08-08] MEDS: INSULIN LISPRO 100 UNIT/ML SUB-Q SCH ×4 (08:53→21:38)
[2019-08-08] MEDS: amLODIPine 10 MG TAB PO SCH (09:42)
[2019-08-08] MEDS: ASPIRIN 81 MG TAB CHEW PO SCH (09:42)
[2019-08-08] MEDS: HEPARIN 5,000 UNIT/1 ML VIAL SUB-Q SCH ×2 (09:42→21:38)
--- NOTE | 2019-08-08 11:16 | Progress Note ---
Assessment and Plan Acute CVA Persistent Atrial fibrillation, uncertain duration rate control with no AV kain blocking agents, suggesting underlying conducti on system disease. Neurology has recommended initiating Eliquis on 2019 for long-term oral anticoagulation. Hypertension Echocardiogram reports a normal LV systolic function, EF 55-60%. Bubble study is negative. Plan: We will avoid aggressive use of AV kain blockers due to his baseline well- controlled rate. Subjective Date of service: 08/08/19 Interval history: Patient has no cardiac complaints. Afib with a well controlled ventricular rate on telemetry. Objective Vital Signs Temp Pulse Pulse Resp BP Pulse Ox 08/08/19 09:53 94 H 18 08/08/19 09:22 98.0 F 55 L 18 127/92 97 08/08/19 04:46 99.0 F 85 18 136/85 95 08/08/19 00:19 97.0 F L 81 20 139/105 98 08/07/19 22:00 94 H 18 08/07/19 20:09 98.4 F 94 H 16 142/92 96 08/07/19 17:58 98.6 F 89 14 141/105 97 08/07/19 17:00 81 08/07/19 11:37 97.8 F 71 14 172/105 98 - Physical Examination General: No Apparent Distress HEENT: Positive: PERRL Neck: Positive: trachea midline Cardiac: Positive: irregularly irregular Lungs: Positive: Decreased Breath Sounds Neuro: Positive: Grossly Intact Extremities: Absent: edema - Labs and Meds Lipids 08/08/19 Range/Units 04:38 Triglycerides 71 (2-149) mg/dL Cholesterol 187 (50-199) mg/dL HDL Cholesterol 55 (40-59) mg/dL Cholesterol/HDL Ratio 3.40 %
--- NOTE | 2019-08-08 15:06 | Progress Note ---
Assessment and Plan Patient is a 59-year-old man with a history of hypertension, who presents with imbalance and left facial droop. According the patient's clinical findings, the patient has had an acute ischemic stroke. Further, telemetry revealed atrial fi brillation. Plan: 1. Stroke: - MRI brain: Revealed right thalamic stroke with small area of hemorrhagic transformation, and also left cerebellar stroke. - CTA head/neck: No significant stenosis. - CT head: Right thalamic stroke. - Echo: EF 55 to 60%, LA normal size, bubble study negative. -Check VIK, as there is evidence of hemorrhagic transformation of stroke on MRI, and would need to rule out endocarditis prior to initiating anticoagulation. - Cont. ASA 81 mg daily. This will be stopped when patient is started on anticoagulation. -Due to area of hemorrhagic transformation of ischemic stroke in right thalamus, would recommend for patient to be started on anticoagulation on August 16, to reduce risk of further hemorrhagic transformation. Would recommend Eliquis, if okay with cardiology. Once anticoagulation is started, aspirin can be stopped at that time. -Carotid ultrasound: No significant stenosis. - Cont. statin. LDL goal <70 - Telemetry monitoring while in house - PT/OT/ST - DVT Ppx: Recommend lovenox 2. Hypertension: - Recommend BP goal of normotension. - Will continue to monitor patient. Thank you for allowing me to take part in the care of this patient. Tha Taylor MD Neurology Subjective Date of service: 08/08/19 Principal diagnosis: Stroke, atrial fibrillation Interval history: No acute events overnight. Objective - Exam Narrative Exam: Patient is alert, awake, oriented x4, follows complex commands. No dysarthria or aphasia noted. PERRL, EOMI, VF F, tongue midline, bilaterally intact to LT, left upper and lower facial weakness noted. 5/5 in right upper and lower extremities, 4/5 in left upper and lower extremities. Bilaterally intact light touch. Bilaterally intact to FTN and HTS. 2+ reflexes throughout. Patient noted to have diplopia on rightward gaze. - Vital Sign Vital Signs - 12hr 08/08/19 08/08/19 08/08/19 04:46 09:22 09:53 Temperature 99.0 F 98.0 F Pulse Rate 85 55 L Pulse Rate [ 94 H Right Radial] Respiratory 18 18 18 Rate Blood Pressure 136/85 127/92 O2 Sat by Pulse 95 97 Oximetry - General Apperance Constitutional: comfortable - EENT EENT: ATNC, PERRL, mucous membranes moist, hearing intact - Respiratory Respiratory: lungs clear, normal breath sounds - Cardiovascular Cardiovascular: normal S1, normal S2 Extremities: no clubbing, cyanosis, no inflammation - Gastrointestinal Gastrointestinal: normoactive bowel sounds, soft, non-tender - Integumentary Integumentary: normal - Musculoskeletal Musculoskeletal: no fluid collection, no pain - Psychiatric Psychiatric: mood/affect appropriate - Laboratory Findings CBC and BMP: 08/07/19 00:42 08/07/19 00:42 Abnormal Lab Findings: Abnormal Labs 08/07/19 08/07/19 08/07/19 00:33 00:42 00:42 WBC 12.3 H RBC 5.45 H Hgb 16.0 H Hct 46.3 H MCHC 35 H Lymph % (Auto) 9.0 L Lymph # 1.1 L Seg Neutrophils % 86.9 H Seg Neutrophils # 10.7 H Glucose 264 H POC Glucose 249 H Hemoglobin A1c LDL Cholesterol Direct 08/07/19 08/07/19 08/07/19 00:50 04:08 16:05 WBC RBC Hgb Hct MCHC Lymph % (Auto) Lymph # Seg Neutrophils % Seg Neutrophils # Glucose POC Glucose 239 H 122 H Hemoglobin A1c 6.8 H LDL Cholesterol Direct 08/07/19 08/08/19 08/08/19 23:15 04:38 11:42 WBC RBC Hgb Hct MCHC Lymph % (Auto) Lymph # Seg Neutrophils % Seg Neutrophils # Glucose POC Glucose 156 H 249 H Hemoglobin A1c LDL Cholesterol Direct 133 H
[2019-08-08] MEDS ORDERED: MAGNESIUM HYDROXIDE (MOM) ORAL LIQD UDC PO ONE (15:12)
--- NOTE | 2019-08-08 18:19 | Progress Note ---
Assessment and Plan Assessment and plan: 59-year-old -[place] male with history of hypertension who presents to PSYCHIATRIC ED with complaints of left facial droop and suspicion for stroke. --Acute CVA; With left facial droop, left upper and lower extremity weakness Not a candidate for TPA, Neuro work-up reviewed Neuro recommend VIK, some hemorrhagic conversion on MRI Cardiology following, Aspirin and statin, PT OT ST Neurology following, rehab --Atrial fibrillation with rate controlled; Continue beta-blockers, hold on anticoagulation in view of new stroke Prevent hemorrhagic conversion Neuro recommend start anticoagulation with Eliquis starting from 08/16/2019 --Hypertensive urgency; present on admission Maintain blood pressures per stroke protocol Closely monitor --Dyslipidemia; continue statin Low-cholesterol diet --Leukocytosis; --DVT prophylaxis;; Closely monitor and adjust management as needed Neurology, cardiology consults and recommendations noted and appreciated Plan of care reviewed with the patient, family and patient's nurse Advance Directives: No VTE prophylaxis?: Chemical Plan of care discussed with patient/family: Yes History Interval history: Patient seen and examined at the bedside, no new overnight events Patient complains of some some vision problems ? Diplopia Tolerated physical therapy Patient alert and awake responding appropriately Vital signs reviewed Hospitalist Physical - Constitutional Vitals: Temp Pulse Resp BP Pulse Ox 98.0 F 94 H 18 127/92 97 08/08/19 09:22 08/08/19 09:53 08/08/19 09:53 08/08/19 09:22 08/08/19 09:22 General appearance: Present: mild distress, well-nourished, other (Left facial droop) - EENT Eyes: Present: PERRL, EOM intact - Neck Neck: Present: supple, normal ROM - Respiratory Respiratory effort: normal Respiratory: bilateral: diminished, negative: rales, rhonchi, wheezing - Cardiovascular Rhythm: regular Heart Sounds: Present: S1 & S2 - Extremities Extremities: no ischemia, No edema - Abdominal General gastrointestinal: soft, non-tender, non-distended, normal bowel sounds - Integumentary Integumentary: Present: clear, warm - Psychiatric Psychiatric: appropriate mood/affect, cooperative - Neurologic Neurologic: other (Acute CVA with residual weakness) Results - Labs CBC & Chem 7: 08/07/19 00:42 08/07/19 00:42 Labs: Laboratory Last Values WBC 12.3 K/mm3 (4.5-11.0) H 08/07/19 00:42 RBC 5.45 M/mm3 (3.65-5.03) H 08/07/19 00:42 Hgb 16.0 gm/dl (11.8-15.2) H 08/07/19 00:42 Hct 46.3 % (35.5-45.6) H 08/07/19 00:42 MCV 85 fl (84-94) 08/07/19 00:42 MCH 29 pg (28-32) 08/07/19 00:42 MCHC 35 % (32-34) H 08/07/19 00:42 RDW 13.5 % (13.2-15.2) 08/07/19 00:42 Plt Count 216 K/mm3 (140-440) 08/07/19 00:42 Lymph % (Auto) 9.0 % (13.4-35.0) L 08/07/19 00:42 [place] % (Auto) 3.7 % (0.0-7.3) 08/07/19 00:42 Eos % (Auto) 0.0 % (0.0-4.3) 08/07/19 00:42 Baso % (Auto) 0.4 % (0.0-1.8) 08/07/19 00:42 Lymph # 1.1 K/mm3 (1.2-5.4) L 08/07/19 00:42 [place] # 0.5 K/mm3 (0.0-0.8) 08/07/19 00:42 Eos # 0.0 K/mm3 (0.0-0.4) 08/07/19 00:42 Baso # 0.0 K/mm3 (0.0-0.1) 08/07/19 00:42 Seg Neutrophils % 86.9 % (40.0-70.0) H 08/07/19 00:42 Seg Neutrophils # 10.7 K/mm3 (1.8-7.7) H 08/07/19 00:42 PT 14.1 Sec. (12.2-14.9) 08/07/19 00:42 INR 1.08 (0.87-1.13) 08/07/19 00:42 APTT 24.9 Sec. (24.2-36.6) 08/07/19 00:42 Thrombin Time 15.7 Sec. (15.1-19.6) 08/07/19 00:42 Sodium 139 mmol/L (137-145) 08/07/19 00:42 Potassium 4.2 mmol/L (3.6-5.0) 08/07/19 00:42 Chloride 98.3 mmol/L (98-107) 08/07/19 00:42 Carbon Dioxide 26 mmol/L (22-30) 08/07/19 00:42 Anion Gap 19 mmol/L 08/07/19 00:42 BUN 16 mg/dL (9-20) 08/07/19 00:42 Creatinine 1.4 mg/dL (0.8-1.5) 08/07/19 00:42 Estimated GFR > 60 ml/min 08/07/19 00:42 BUN/Creatinine Ratio 11 % 08/07/19 00:42 Glucose 264 mg/dL (75-100) H 08/07/19 00:42 POC Glucose 192 (70-105) H 08/08/19 16:33 Hemoglobin A1c 6.8 % (4-6) H 08/07/19 04:08 Calcium 9.8 mg/dL (8.4-10.2) 08/07/19 00:42 Troponin T < 0.010 ng/mL (0.00-0.029) 08/07/19 04:08 Triglycerides 71 mg/dL (2-149) 08/08/19 04:38 Cholesterol 187 mg/dL (50-199) 08/08/19 04:38 LDL Cholesterol Direct 133 mg/dL (50-130) H 08/08/19 04:38 HDL Cholesterol 55 mg/dL (40-59) 08/08/19 04:38 Cholesterol/HDL Ratio 3.40 % 08/08/19 04:38 Active Medications - Current Medications Current Medications: Generic Name Dose Route Start Last Admin Trade Name Freq PRN Reason Stop Dose Admin Acetaminophen 650 mg 08/07/19 02:33 Tylenol PO Q4H PRN Pain, Mild (1-3) Amlodipine Besylate 10 mg 08/07/19 10:00 08/08/19 09:42 Amlodipine PO 10 mg QDAY [facility] Administration Aspirin 81 mg 08/07/19 10:00 08/08/19 09:42 Baby Aspirin PO 81 mg QDAY [facility] Administration Atorvastatin Calcium 40 mg 08/07/19 22:00 08/07/19 22:50 Lipitor PO 40 mg QHS [facility] Administration Dextrose 0 ml 08/07/19 02:39 D50w (25gm) Syringe IV Q30MIN PRN Hypoglycemia Protocol Heparin Sodium (Porcine) 5,000 unit 08/07/19 10:00 08/08/19 09:42 Heparin SUB-Q 5,000 unit Q12HR [facility] Administration Hydralazine HCl 10 mg 08/07/19 02:40 Apresoline IV Q4H PRN Blood Pressure Insulin Human Lispro 0 unit 08/07/19 07:30 08/08/19 16:53 Humalog SUB-Q 2 unit ACHS [facility] Administration Protocol Magnesium Hydroxide 30 ml 08/07/19 02:33 Milk Of Magnesia PO Q4H PRN Constipation Metoprolol Tartrate 25 mg 08/08/19 22:00 Metoprolol PO BID [facility] Ondansetron HCl 4 mg 08/07/19 02:33 Zofran IV Q8H PRN Nausea And Vomiting Sodium Chloride 10 ml 08/07/19 02:33 Sodium Chloride Flush Syringe 10 Ml IV PRN PRN LINE FLUSH Nutrition/Malnutrition Assess - Dietary Evaluation Nutrition/Malnutrition Findings: Nutrition Notes Start: 08/07/19 12:16 Freq: Status: Active Protocol: Document 08/08/19 10:30 CW (Rec: 08/08/19 10:47 CW [id number]) Co-Sign 08/08/19 10:30 LP Nutrition Notes Need for Assessment generated from: Education Initial or Follow up Reassessment Current Diagnosis Diabetes,Hypertension,Stroke Current Diet cardiac/ consistent CHO Labs/Tests HgbA1c 6.8 LDL 133 Pertinent Medications Humalog Lipitor Height 6 ft 2 in Weight 82.9 kg Usual Body Weight 82.7 kg [place] Body Weight (kg) 86.36 BMI 23.4 Intake Prior to Admission Good Weight Status Appropriate Subjective/Other Information F/U for diet education and assessment. Pt denies N/V/D and changes in BW. As per pt. UBW is 182 lbs. Patient and family provided with in a heart healthy mediterranean diet. Pt reports having an appetite and eating 75% of meals Burn Absent Trauma Absent GI Symptoms None Food Allergy No Current % PO Good (75-100%) Minimum of two criteria No physical signs of malnutrition #1 Nutrition Diagnosis Food and nutrition-related knowledge deficit Etiology pt needing diet education regarding heart healthy diet As Evidenced by Signs and Symptoms Pt having no prior knowledge of the benefits of a heart healthy diet Is patient on ventilator? No Is Patient Ambulatory and/or Out of Bed No REE-([facility]-confined to bed) Calculation Used for Recommendations [facility] Additional Notes protein: 66 - 83 g (0.8 - 1 g /kgBW) fluid needs: 1ml/kcal Nutrition Intervention Change Diet Order: continue cardiac consistent CHO diet Teaching Recipient Patient,Spouse Learning Readiness Good Teaching Methods Discussion,Handout Response to Teaching Verbalize understanding Education Handouts Provided Stroke Healthy Diet Mediterranean Diet Barriers to Learning No Barriers RD phone number provided Yes Patient aware of follow up options Yes Goal #1 Follow a Heart Healthy diet for CVA Anticipated Discharge Needs: Cardiac Consistent CHO diet Revisit per MD consult or patient Sign Off request:
[2019-08-08] MEDS: METOPROLOL TARTRATE 25 MG TAB PO SCH (21:36)
[2019-08-09] MEDS: INSULIN LISPRO 100 UNIT/ML SUB-Q SCH ×4 (08:15→21:30)
--- NOTE | 2019-08-09 10:12 | Progress Note ---
Assessment and Plan Acute CVA Persistent Atrial fibrillation, uncertain duration rate control with no AV kain blocking agents, suggesting underlying conducti on system disease. Neurology has recommended initiating Eliquis on 2019 for long-term oral anticoagulation. Hypertension Echocardiogram reports a normal LV systolic function, EF 55-60%. Bubble study is negative. Plan: Continue medical therapy for rate controlling agents for atrial fibrillation that persists. Neurology has recommended a VIK. This will be arranged for Tuesday. Subjective Date of service: 08/09/19 Principal diagnosis: Stroke, atrial fibrillation Interval history: Patient has no cardiac complaints. Afib with a well controlled ventricular rate on telemetry. Objective Vital Signs Temp Pulse Resp BP Pulse Ox 08/09/19 08:52 95 08/09/19 08:17 98.2 F 89 18 131/81 97 08/09/19 08:01 18 08/09/19 03:38 97.8 F 80 18 127/93 98 08/08/19 23:47 98.5 F 86 18 130/89 98 08/08/19 22:00 97 H 08/08/19 21:36 88 139/89 08/08/19 20:25 20 08/08/19 20:00 98.0 F 94 H 18 139/89 97 08/08/19 17:21 98.0 F 88 18 107/62 98 08/08/19 12:31 98.1 F 18 125/93 - Physical Examination General: No Apparent Distress HEENT: Positive: PERRL Neck: Positive: trachea midline Cardiac: Positive: irregularly irregular Lungs: Positive: Decreased Breath Sounds Neuro: Positive: Grossly Intact Extremities: Absent: edema
[2019-08-09] MEDS: METOPROLOL TARTRATE 25 MG TAB PO SCH ×2 (11:30→21:29)
[2019-08-09] MEDS: ASPIRIN 81 MG TAB CHEW PO SCH (11:30)
[2019-08-09] MEDS: amLODIPine 10 MG TAB PO SCH (11:30)
[2019-08-09] MEDS: HEPARIN 5,000 UNIT/1 ML VIAL SUB-Q SCH ×2 (11:30→21:29)
--- NOTE | 2019-08-09 14:17 | Progress Note ---
Assessment and Plan Patient is a 59-year-old man with a history of hypertension, who presents with imbalance and left facial droop. According the patient's clinical findings, the patient has had an acute ischemic stroke. Further, telemetry revealed atrial fi brillation. Plan: 1. Stroke: - MRI brain: Revealed right thalamic stroke with small area of hemorrhagic transformation, and also left cerebellar stroke. - CTA head/neck: No significant stenosis. - CT head: Right thalamic stroke. - Echo: EF 55 to 60%, LA normal size, bubble study negative. -Check VIK, as there is evidence of hemorrhagic transformation of stroke on MRI, and would need to rule out endocarditis prior to initiating anticoagulation.- Pending - Cont. ASA 81 mg daily. This will be stopped when patient is started on anticoagulation. -Due to area of hemorrhagic transformation of ischemic stroke in right thalamus, would recommend for patient to be started on anticoagulation on August 16, 2019, to reduce risk of further hemorrhagic transformation. Would recommend Eliquis, if okay with cardiology. Once anticoagulation is started, aspirin can be stopped at that time. Also recommend repeat CT head on August 21, 2019, to monitor for any progression of hemorrhagic transformation. -Carotid ultrasound: No significant stenosis. - Cont. statin. LDL goal <70 - Telemetry monitoring while in house - PT/OT/ST - DVT Ppx: Recommend lovenox 2. Hypertension: - Recommend BP goal of normotension. - Will continue to monitor patient. Thank you for allowing me to take part in the care of this patient. Tha Taylor MD Neurology Subjective Date of service: 08/09/19 Principal diagnosis: Stroke, atrial fibrillation Interval history: No acute events overnight. Objective - Exam Narrative Exam: Patient is alert, awake, oriented x4, follows complex commands. No dysarthria or aphasia noted. PERRL, EOMI, VF F, tongue midline, bilaterally intact to LT, left upper and lower facial weakness noted. 5/5 in right upper and lower extremities, 4/5 in left upper and lower extremities. Bilaterally intact light touch. Bilaterally intact to FTN and HTS. 2+ reflexes throughout. Patient noted to have diplopia on rightward gaze. - Vital Sign Vital Signs - 12hr 08/09/19 08/09/19 08/09/19 03:38 08:01 08:17 Temperature 97.8 F 98.2 F Pulse Rate 80 89 Respiratory 18 18 18 Rate Blood Pressure 127/93 131/81 O2 Sat by Pulse 98 97 Oximetry 08/09/19 08:52 Temperature Pulse Rate Respiratory Rate Blood Pressure O2 Sat by Pulse 95 Oximetry - General Apperance Constitutional: comfortable - EENT EENT: ATNC, PERRL, mucous membranes moist, hearing intact, vision intact - Respiratory Respiratory: lungs clear, normal breath sounds - Cardiovascular Cardiovascular: regular rate, normal S1, normal S2 Extremities: no clubbing, cyanosis, no inflammation - Gastrointestinal Gastrointestinal: normoactive bowel sounds, soft, non-tender - Integumentary Integumentary: normal - Musculoskeletal Musculoskeletal: no fluid collection, no pain - Psychiatric Psychiatric: mood/affect appropriate - Laboratory Findings CBC and BMP: 08/07/19 00:42 08/07/19 00:42 Abnormal Lab Findings: Abnormal Labs 08/07/19 08/07/19 08/07/19 00:33 00:42 00:42 WBC 12.3 H RBC 5.45 H Hgb 16.0 H Hct 46.3 H MCHC 35 H Lymph % (Auto) 9.0 L Lymph # 1.1 L Seg Neutrophils % 86.9 H Seg Neutrophils # 10.7 H Glucose 264 H POC Glucose 249 H Hemoglobin A1c LDL Cholesterol Direct 08/07/19 08/07/19 08/07/19 00:50 04:08 16:05 WBC RBC Hgb Hct MCHC Lymph % (Auto) Lymph # Seg Neutrophils % Seg Neutrophils # Glucose POC Glucose 239 H 122 H Hemoglobin A1c 6.8 H LDL Cholesterol Direct 08/07/19 08/08/19 08/08/19 23:15 04:38 11:42 WBC RBC Hgb Hct MCHC Lymph % (Auto) Lymph # Seg Neutrophils % Seg Neutrophils # Glucose POC Glucose 156 H 249 H Hemoglobin A1c LDL Cholesterol Direct 133 H 08/08/19 08/08/19 08/09/19 16:33 21:32 08:28 WBC RBC Hgb Hct MCHC Lymph % (Auto) Lymph # Seg Neutrophils % Seg Neutrophils # Glucose POC Glucose 192 H 132 H 114 H Hemoglobin A1c LDL Cholesterol Direct 08/09/19 13:17 WBC RBC Hgb Hct MCHC Lymph % (Auto) Lymph # Seg Neutrophils % Seg Neutrophils # Glucose POC Glucose 153 H Hemoglobin A1c LDL Cholesterol Direct
--- NOTE | 2019-08-09 14:50 | Anesthesia Consultation ---
Anesthesia Consult and Med Hx Date of service: 08/09/19 - Airway Anesthetic Teeth Evaluation: Good, Partials (upper front) Mallampati Class: Class II Intubation Access Assessment: Probably Good - Pre-Operative Health Status ASA Pre-Surgery Classification: ASA3 Proposed Anesthetic Plan: MAC - Pulmonary Hx Asthma: No COPD: No Hx Pneumonia: No - Cardiovascular System Hx Hypertension: Yes - Central Nervous System CVA: Yes (recent episode) - Endocrine Hx End Stage Renal Disease: No - Other Systems Hx Alcohol Use: Yes
--- NOTE | 2019-08-09 19:14 | Progress Note ---
Assessment and Plan Assessment and plan: 59-year-old -Swedish male with acute CVA with left facial droop and left sided weakness Neurology recommend VIK ,initially was scheduled for VIK today, rescheduled for tomorrow per cardiology. --Acute CVA; With left facial droop, left upper and lower extremity weakness Not a candidate for TPA, Neuro work-up reviewed Neuro recommend VIK, some hemorrhagic conversion on MRI Cardiology following, Aspirin and statin, PT OT ST Neurology following, rehab --Atrial fibrillation with rate controlled; Continue beta-blockers, hold on anticoagulation in view of new stroke Prevent hemorrhagic conversion Neuro recommend start anticoagulation with Eliquis starting from 08/16/2019 --Hypertensive urgency; present on admission Maintain blood pressures per stroke protocol Closely monitor --Dyslipidemia; continue statin Low-cholesterol diet --Leukocytosis; --DVT prophylaxis;; Closely monitor and adjust management as needed Neurology, cardiology consults and recommendations noted and appreciated Plan of care reviewed with the patient, family and patient's nurse Advance Directives: No VTE prophylaxis?: Chemical Plan of care discussed with patient/family: Yes Disposition; follow VIK tomorrow, if negative and stable Patient may be discharged home tomorrow History Interval history: Patient seen and examined at the bedside Patient's chart, consults evaluations, last 24 hours events noted Patient complains of generalized weakness Vital signs reviewed Hospitalist Physical - Constitutional Vitals: Temp Pulse Resp BP Pulse Ox 98.6 F 66 18 134/84 94 08/09/19 13:07 08/09/19 13:07 08/09/19 13:07 08/09/19 13:07 08/09/19 13:07 General appearance: Present: no acute distress, well-nourished, other (Left facial droop) - EENT Eyes: Present: PERRL, EOM intact - Neck Neck: Present: supple, normal ROM - Respiratory Respiratory effort: normal Respiratory: bilateral: diminished, negative: rales, rhonchi, wheezing - Cardiovascular Rhythm: regular Heart Sounds: Present: S1 & S2 - Extremities Extremities: no ischemia, No edema - Abdominal General gastrointestinal: soft, non-tender, non-distended, normal bowel sounds - Integumentary Integumentary: Present: clear, warm - Psychiatric Psychiatric: appropriate mood/affect, cooperative - Neurologic Neurologic: other (Acute CVA with left-sided weakness) Results - Labs CBC & Chem 7: 08/07/19 00:42 02 00:42 Labs: Laboratory Last Values WBC 12.3 K/mm3 (4.5-11.0) H 08/07/19 00:42 RBC 5.45 M/mm3 (3.65-5.03) H 08/07/19 00:42 Hgb 16.0 gm/dl (11.8-15.2) H 08/07/19 00:42 Hct 46.3 % (35.5-45.6) H 08/07/19 00:42 MCV 85 fl (84-94) 08/07/19 00:42 MCH 29 pg (28-32) 08/07/19 00:42 MCHC 35 % (32-34) H 08/07/19 00:42 RDW 13.5 % (13.2-15.2) 08/07/19 00:42 Plt Count 216 K/mm3 (140-440) 08/07/19 00:42 Lymph % (Auto) 9.0 % (13.4-35.0) L 08/07/19 00:42 [place] % (Auto) 3.7 % (0.0-7.3) 08/07/19 00:42 Eos % (Auto) 0.0 % (0.0-4.3) 08/07/19 00:42 Baso % (Auto) 0.4 % (0.0-1.8) 08/07/19 00:42 Lymph # 1.1 K/mm3 (1.2-5.4) L 08/07/19 00:42 [place] # 0.5 K/mm3 (0.0-0.8) 08/07/19 00:42 Eos # 0.0 K/mm3 (0.0-0.4) 08/07/19 00:42 Baso # 0.0 K/mm3 (0.0-0.1) 08/07/19 00:42 Seg Neutrophils % 86.9 % (40.0-70.0) H 08/07/19 00:42 Seg Neutrophils # 10.7 K/mm3 (1.8-7.7) H 08/07/19 00:42 PT 14.1 Sec. (12.2-14.9) 08/07/19 00:42 INR 1.08 (0.87-1.13) 08/07/19 00:42 APTT 24.9 Sec. (24.2-36.6) 08/07/19 00:42 Thrombin Time 15.7 Sec. (15.1-19.6) 08/07/19 00:42 Sodium 139 mmol/L (137-145) 08/07/19 00:42 Potassium 4.2 mmol/L (3.6-5.0) 08/07/19 00:42 Chloride 98.3 mmol/L (98-107) 08/07/19 00:42 Carbon Dioxide 26 mmol/L (22-30) 08/07/19 00:42 Anion Gap 19 mmol/L 08/07/19 00:42 BUN 16 mg/dL (9-20) 08/07/19 00:42 Creatinine 1.4 mg/dL (0.8-1.5) 08/07/19 00:42 Estimated GFR > 60 ml/min 08/07/19 00:42 BUN/Creatinine Ratio 11 % 08/07/19 00:42 Glucose 264 mg/dL (75-100) H 08/07/19 00:42 POC Glucose 141 (70-105) H 08/09/19 17:25 Hemoglobin A1c 6.8 % (4-6) H 08/07/19 04:08 Calcium 9.8 mg/dL (8.4-10.2) 08/07/19 00:42 Troponin T < 0.010 ng/mL (0.00-0.029) 08/07/19 04:08 Triglycerides 71 mg/dL (2-149) 08/08/19 04:38 Cholesterol 187 mg/dL (50-199) 08/08/19 04:38 LDL Cholesterol Direct 133 mg/dL (50-130) H 08/08/19 04:38 HDL Cholesterol 55 mg/dL (40-59) 08/08/19 04:38 Cholesterol/HDL Ratio 3.40 % 08/08/19 04:38 Active Medications - Current Medications Current Medications: Generic Name Dose Route Start Last Admin Trade Name Freq PRN Reason Stop Dose Admin Acetaminophen 650 mg 08/07/19 02:33 Tylenol PO Q4H PRN Pain, Mild (1-3) Amlodipine Besylate 10 mg 08/07/19 10:00 08/09/19 11:30 Amlodipine PO 10 mg QDAY GLORY Administration Aspirin 81 mg 08/07/19 10:00 08/09/19 11:30 Baby Aspirin PO 81 mg QDAY GLORY Administration Atorvastatin Calcium 40 mg 08/07/19 22:00 08/08/19 21:36 Lipitor PO 40 mg QHS GLORY Administration Dextrose 0 ml 08/07/19 02:39 D50w (25gm) Syringe IV Q30MIN PRN Hypoglycemia Protocol Heparin Sodium (Porcine) 5,000 unit 08/07/19 10:00 08/09/19 11:30 Heparin SUB-Q 5,000 unit Q12HR GLORY Administration Hydralazine HCl 10 mg 08/07/19 02:40 Apresoline IV Q4H PRN Blood Pressure Insulin Human Lispro 0 unit 08/07/19 07:30 08/09/19 17:25 Humalog SUB-Q Not Given ACHS GLORY Protocol Magnesium Hydroxide 30 ml 08/07/19 02:33 Milk Of Magnesia PO Q4H PRN Constipation Metoprolol Tartrate 25 mg 08/08/19 22:00 08/09/19 11:30 Metoprolol PO 25 mg BID GLORY Administration Ondansetron HCl 4 mg 08/07/19 02:33 Zofran IV Q8H PRN Nausea And Vomiting Sodium Chloride 10 ml 08/07/19 02:33 08/08/19 21:37 Sodium Chloride Flush Syringe 10 Ml IV 10 ml PRN PRN Administration LINE FLUSH Nutrition/Malnutrition Assess - Dietary Evaluation Nutrition/Malnutrition Findings: Nutrition Notes Start: 08/07/19 12 :16 Freq: Status: Active Protocol: Document 08/08/19 10:30 CW (Rec: 08/08/19 10:47 CW [id number]) Co-Sign 08/08/19 10:30 LP Nutrition Notes Need for Assessment generated from: Education Initial or Follow up Reassessment Current Diagnosis Diabetes,Hypertension,Stroke Current Diet cardiac/ consistent CHO Labs/Tests HgbA1c 6.8 LDL 133 Pertinent Medications Humalog Lipitor Height 6 ft 2 in Weight 82.9 kg Usual Body Weight 82.7 kg [place] Body Weight (kg) 86.36 BMI 23.4 Intake Prior to Admission Good Weight Status Appropriate Subjective/Other Information F/U for diet education and assessment. Pt denies N/V/D and changes in BW. As per pt. UBW is 182 lbs. Patient and family provided with in a heart healthy mediterranean diet. Pt reports having an appetite and eating 75% of meals Burn Absent Trauma Absent GI Symptoms None Food Allergy No Current % PO Good (75-100%) Minimum of two criteria No physical signs of malnutrition #1 Nutrition Diagnosis Food and nutrition-related knowledge deficit Etiology pt needing diet education regarding heart healthy diet As Evidenced by Signs and Symptoms Pt having no prior knowledge of the benefits of a heart healthy diet Is patient on ventilator? No Is Patient Ambulatory and/or Out of Bed No REE-([place]-St. Jeor-confined to bed) [facility] Additional Notes protein: 66 - 83 g (0.8 - 1 g /kgBW) fluid needs: 1ml/kcal Nutrition Intervention Change Diet Order: continue cardiac consistent CHO diet Teaching Recipient Patient,Spouse Learning Readiness Good Teaching Methods Discussion,Handout Response to Teaching Verbalize understanding Education Handouts Provided Stroke Healthy Diet Mediterranean Diet Barriers to Learning No Barriers RD phone number provided Yes Patient aware of follow up options Yes Goal #1 Follow a Heart Healthy diet for CVA Anticipated Discharge Needs: Cardiac Consistent CHO diet Revisit per MD consult or patient Sign Off request:
[2019-08-10] MEDS: INSULIN LISPRO 100 UNIT/ML SUB-Q SCH ×3 (08:00→18:00)
[2019-08-10] MEDS ORDERED: BENZOCAINE 20% TOP SPRAY 0.5 ML UNIT DOSE MM ONE (08:09)
[2019-08-10] MEDS ORDERED: MIDAZOLAM 5 MG/5 ML INJ MDV IV ONE ×2 (08:10→08:17)
[2019-08-10] MEDS ORDERED: SODIUM CHLORIDE 0.9% 500 ML 500 ML ONE (08:10)
[2019-08-10] MEDS ORDERED: fentaNYL 100 MCG/2 ML INJ ONE (08:11)
[2019-08-10] MEDS ORDERED: fentaNYL 100 MCG/2 ML INJ IV ONE (08:17)
[2019-08-10] MEDS ORDERED: SODIUM CHLORIDE 0.9% 500 ML 500 ML IV SCH (09:00)
[2019-08-10] MEDS ORDERED: BENZOCAINE 20% TOP SPRAY 0.5 ML UNIT DOSE MM NR (09:00)
--- NOTE | 2019-08-10 09:49 | Progress Note ---
Assessment and Plan Acute CVA Persistent Atrial fibrillation, uncertain duration rate control with no AV kain blocking agents, suggesting underlying conduction system disease. Neurology has recommended initiating Eliquis on 2019 for long-term oral anticoagulation. Hypertension Echocardiogram reports a normal LV systolic function, EF 55-60%. Bubble study is negative. VIK 08/10/2019 showing no evidence of a cardioembolic source and no evidence of valvular vegetations Plan: Initiate eliquis at 5 mg po bid Aug 16, 2019 Subjective Date of service: 08/10/19 Principal diagnosis: Stroke, atrial fibrillation Interval history: Patient underwent a VIK today without complications Objective Vital Signs Temp Pulse Pulse Pulse Pulse Resp Resp 08/10/19 09:10 69 08/10/19 08:57 75 08/10/19 08:41 88 15 08/10/19 08:38 101 H 16 08/10/19 08:36 104 H 18 08/10/19 08:28 99 H 20 08/10/19 08:00 18 08/10/19 03:39 98.6 F 89 18 08/09/19 22:58 98.3 F 92 H 18 08/09/19 21:31 08/09/19 21:29 87 08/09/19 20:56 87 18 08/09/19 20:17 98.5 F 87 18 08/09/19 19:32 112 H 08/09/19 13:07 98.6 F 66 18 08/09/19 11:30 89 08/09/19 10:00 97 H Resp BP BP BP Pulse Ox Pulse Ox Pulse Ox 08/10/19 09:10 13 127/92 94 08/10/19 08:57 12 119/89 97 08/10/19 08:41 138/96 98 08/10/19 08:38 131/92 97 08/10/19 08:36 118/96 98 08/10/19 08:28 143/92 100 08/10/19 08:00 08/10/19 03:39 145/97 97 08/09/19 22:58 123/87 94 08/09/19 21:31 96 08/09/19 21:29 126/88 08/09/19 20:56 96 08/09/19 20:17 126/88 96 08/09/19 19:32 08/09/19 13:07 134/84 94 08/09/19 11:30 131/81 08/09/19 10:00 - Physical Examination General: No Apparent Distress HEENT: Positive: PERRL Neck: Positive: trachea midline Cardiac: Positive: irregularly irregular Lungs: Positive: Normal Exam Neuro: Positive: Grossly Intact Extremities: Absent: edema
[2019-08-10] MEDS: ASPIRIN 81 MG TAB CHEW PO SCH (11:10)
[2019-08-10] MEDS: METOPROLOL TARTRATE 25 MG TAB PO SCH (11:10)
[2019-08-10] MEDS: amLODIPine 10 MG TAB PO SCH (11:11)
[2019-08-10] MEDS: HEPARIN 5,000 UNIT/1 ML VIAL SUB-Q SCH (11:13)
--- NOTE | 2019-08-10 15:25 | Progress Note ---
Assessment and Plan Patient is a 59-year-old man with a history of hypertension, who presents with imbalance and left facial droop. According the patient's clinical findings, the patient has had an acute ischemic stroke. Further, telemetry revealed atrial fi brillation. Plan: 1. Stroke: - MRI brain: Revealed right thalamic stroke with small area of hemorrhagic transformation, and also left cerebellar stroke. - CTA head/neck: No significant stenosis. - CT head: Right thalamic stroke. - Echo: EF 55 to 60%, LA normal size, bubble study negative. -VIK: No intracardiac thrombi, vegetations. No PFO noted. EF 50 to 55%. - Cont. ASA 81 mg daily. This will be stopped when patient is started on anticoagulation. -Due to area of hemorrhagic transformation of ischemic stroke in right thalamus, would recommend for patient to be started on anticoagulation on August 16, 2019, to reduce risk of further hemorrhagic transformation. Would recommend Eliquis, if okay with cardiology. Once anticoagulation is started, aspirin can be stopped at that time. Also recommend repeat CT head on August 21, 2019, to monitor for any progression of hemorrhagic transformation. -Carotid ultrasound: No significant stenosis. - Cont. statin. LDL goal <70 - Telemetry monitoring while in house - PT/OT/ST - DVT Ppx: Recommend lovenox 2. Hypertension: - Recommend BP goal of normotension. -Will sign off, as I am not covering neurology service over the weekend. Please consult neurologist covering the service over the weekend for further neurologic monitoring and management. Thank you for allowing me to take part in the care of this patient. Tha Taylor MD Neurology Subjective Date of service: 08/10/19 Principal diagnosis: Stroke, atrial fibrillation Interval history: No acute events overnight. Objective - Exam Narrative Exam: Patient is alert, awake, oriented x4, follows complex commands. No dysarthria or aphasia noted. PERRL, EOMI, VF F, tongue midline, bilaterally intact to LT, left upper and lower facial weakness noted. 5/5 in right upper and lower extremities, 4/5 in left upper and lower extremities. Bilaterally intact light touch. Bilaterally intact to FTN and HTS. 2+ reflexes throughout. Patient noted to have diplopia on rightward gaze. - Vital Sign Vital Signs - 12hr 08/10/19 08/10/19 08/10/19 03:39 08:00 08:28 Temperature 98.6 F Pulse Rate 89 Pulse Rate [ 99 H Intra-Procedure ] Pulse Rate [ Post-Procedure] Respiratory 18 18 Rate Respiratory 20 Rate [Intra- Procedure] Respiratory Rate [Post- Procedure] Blood Pressure 145/97 Blood Pressure 143/92 [Intra- Procedure] Blood Pressure [Post-Procedure ] O2 Sat by Pulse 97 Oximetry O2 Sat by Pulse 100 Oximetry [ Intra-Procedure ] O2 Sat by Pulse Oximetry [Post -Procedure] 08/10/19 08/10/19 08/10/19 08:36 08:38 08:41 Temperature Pulse Rate Pulse Rate [ 104 H 101 H 88 Intra-Procedure ] Pulse Rate [ Post-Procedure] Respiratory Rate Respiratory 18 16 15 Rate [Intra- Procedure] Respiratory Rate [Post- Procedure] Blood Pressure Blood Pressure 118/96 131/92 138/96 [Intra- Procedure] Blood Pressure [Post-Procedure ] O2 Sat by Pulse Oximetry O2 Sat by Pulse 98 97 98 Oximetry [ Intra-Procedure ] O2 Sat by Pulse Oximetry [Post -Procedure] 08/10/19 08/10/19 08/10/19 08:57 09:10 11:10 Temperature Pulse Rate 71 Pulse Rate [ Intra-Procedure ] Pulse Rate [ 75 69 Post-Procedure] Respiratory Rate Respiratory Rate [Intra- Procedure] Respiratory 12 13 Rate [Post- Procedure] Blood Pressure 129/74 Blood Pressure [Intra- Procedure] Blood Pressure 119/89 127/92 [Post-Procedure ] O2 Sat by Pulse Oximetry O2 Sat by Pulse Oximetry [ Intra-Procedure ] O2 Sat by Pulse 97 94 Oximetry [Post -Procedure] 08/10/19 08/10/19 08/10/19 11:11 11:20 12:30 Temperature Pulse Rate 71 Pulse Rate [ Intra-Procedure ] Pulse Rate [ Post-Procedure] Respiratory Rate Respiratory Rate [Intra- Procedure] Respiratory Rate [Post- Procedure] Blood Pressure 120/80 Blood Pressure [Intra- Procedure] Blood Pressure [Post-Procedure ] O2 Sat by Pulse 95 95 Oximetry O2 Sat by Pulse Oximetry [ Intra-Procedure ] O2 Sat by Pulse Oximetry [Post -Procedure] - General Apperance Constitutional: comfortable - EENT EENT: ATNC, PERRL, mucous membranes moist, hearing intact - Respiratory Respiratory: lungs clear, normal breath sounds - Cardiovascular Cardiovascular: normal S1, normal S2, other (Tachycardia) Extremities: no clubbing, cyanosis, no inflammation - Gastrointestinal Gastrointestinal: normoactive bowel sounds, soft, non-tender - Integumentary Integumentary: normal - Musculoskeletal Musculoskeletal: no fluid collection - Psychiatric Psychiatric: mood/affect appropriate - Laboratory Findings CBC and BMP: 08/07/19 00:42 08/07/19 00:42 Abnormal Lab Findings: Abnormal Labs 08/07/19 08/07/19 08/07/19 00:33 00:42 00:42 WBC 12.3 H RBC 5.45 H Hgb 16.0 H Hct 46.3 H MCHC 35 H Lymph % (Auto) 9.0 L Lymph # 1.1 L Seg Neutrophils % 86.9 H Seg Neutrophils # 10.7 H Glucose 264 H POC Glucose 249 H Hemoglobin A1c LDL Cholesterol Direct 08/07/19 08/07/19 08/07/19 00:50 04:08 16:05 WBC RBC Hgb Hct MCHC Lymph % (Auto) Lymph # Seg Neutrophils % Seg Neutrophils # Glucose POC Glucose 239 H 122 H Hemoglobin A1c 6.8 H LDL Cholesterol Direct 08/07/19 08/08/19 08/08/19 23:15 04:38 11:42 WBC RBC Hgb Hct MCHC Lymph % (Auto) Lymph # Seg Neutrophils % Seg Neutrophils # Glucose POC Glucose 156 H 249 H Hemoglobin A1c LDL Cholesterol Direct 133 H 08/08/19 08/08/19 08/09/19 16:33 21:32 08:28 WBC RBC Hgb Hct MCHC Lymph % (Auto) Lymph # Seg Neutrophils % Seg Neutrophils # Glucose POC Glucose 192 H 132 H 114 H Hemoglobin A1c LDL Cholesterol Direct 08/09/19 08/09/19 08/09/19 13:17 17:25 20:30 WBC RBC Hgb Hct MCHC Lymph % (Auto) Lymph # Seg Neutrophils % Seg Neutrophils # Glucose POC Glucose 153 H 141 H 161 H Hemoglobin A1c LDL Cholesterol Direct 08/10/19 08/10/19 11:10 12:13 WBC RBC Hgb Hct MCHC Lymph % (Auto) Lymph # Seg Neutrophils % Seg Neutrophils # Glucose POC Glucose 107 H 188 H Hemoglobin A1c LDL Cholesterol Direct
--- NOTE | 2019-08-10 16:24 | Discharge Summary ---
Providers - Providers Date of Admission: 08/07/19 02:34 Date of discharge: 08/10/19 Attending physician: JOSE ARBOLEDA 08/07/19 Consult to Physician [CONS] Routine Comment: Consulting Provider: KAREN LEON Physician Instructions: Reason For Exam: cva 08/07/19 02:34 Consult to Dietitian/Nutrition [CONS] Routine Physician Instructions: Reason For Exam: Reason for Consult: Nutrition Recommendations Reason for Consult: Diet education Occupational Therapy Evaluate and Treat [CONS] Routine Comment: Reason For Exam: Neuro deficits Physical Therapy Evaluation and Treat [CONS] Routine Comment: Reason For Exam: Neuro deficits 08/07/19 02:49 Consult to Physician [CONS] Routine Comment: Consulting Provider: PANTERA FERREIRA Physician Instructions: Reason For Exam: cva, possible afib Primary care physician: SIGN HANGER Hospitalization Condition: Stable Disposition: DC/[place]-06 HOME [facility] Time spent for discharge: 32 min Core Measure Documentation - Palliative Care Palliative Care/ Comfort Measures: Not Applicable - Core Measures Any of the following diagnoses?: stroke - Stroke Discharge Requirements Statin for LDL = or >70 mg/dl on DC: Yes Anticoag for atrial fib/atrial flutter: Not Applicable Reason for no anticoag for AF/F on DC: Not Indicated Antithrombotic for ischemic stroke: Yes Exam - Constitutional Vitals: Temp Pulse Resp BP Pulse Ox 98.6 F 71 13 120/80 95 08/10/19 03:39 08/10/19 11:11 08/10/19 09:10 08/10/19 11:11 08/10/19 12:30 General appearance: Present: no acute distress, well-nourished - EENT Eyes: Present: PERRL, EOM intact - Neck Neck: Present: supple, normal ROM - Respiratory Respiratory effort: normal Respiratory: bilateral: diminished, negative: rales, rhonchi, wheezing - Cardiovascular Rhythm: regular Heart Sounds: Present: S1 & S2 - Extremities Extremities: no ischemia, No edema - Abdominal General gastrointestinal: Present: soft, non-tender, non-distended, normal bowel sounds - Integumentary Integumentary: Present: clear, warm - Musculoskeletal Musculoskeletal: strength equal bilaterally - Psychiatric Psychiatric: appropriate mood/affect, cooperative - Neurologic Neurologic: other (Acute CVA with residual weakness) Plan Activity: advance as tolerated, fall precautions Diet: other (cardiac diet) Special Instructions: physical therapy Additional Instructions: Cont ASA 81 mg daily till 08/16/19. Start Eliquis 5 mg twice a day from 08/16/19. Repeat CT head on August 21, 2019, to monitor for any progression of hemorrhagic transformation. Follow up with: PRIMARY CARE, [Primary Care Provider] - 7 Days DELON ZARATE MD [Staff Physician] - 7 Days ZACK COBIAN MD [Referring] - 7 Days Prescriptions: Aspirin [Aspirin BABY CHEW TAB] 81 mg PO QDAY #6 tab.chew Apixaban [Eliquis] 5 mg PO BID #60 tablet AtorvaSTATin [Lipitor] 40 mg PO QHS #30 tablet Metoprolol [Lopressor TAB] 25 mg PO BID #60 tablet
[2019-08-10 17:08] VITALS: BP 137/85
== END 2019-08-10 18:53 | disposition home health service (06) | DRG 65 ==
LOC: ED 00:14 → 4A 02:34
PROVIDERS: ADMIT Internal Medicine; ATTEND Internal Medicine
DX: I63.9 Cerebral infarction, unspecified (principal); G81.94 Hemiplegia, unspecified affecting left nondominant side; I48.91 Unspecified atrial fibrillation; I16.0 Hypertensive urgency; I10 Essential (primary) hypertension; R29.810 Facial weakness; E78.5 Hyperlipidemia, unspecified; R29.704 NIHSS score 4; D72.829 Elevated white blood cell count, unspecified; E86.0 Dehydration; Z72.89 Other problems related to lifestyle
CPT/HCPCS: 36415; 70450; 70496; 70498; 70551; 80048; 80061; 82962; 83036; 84484; 85025; 85610; 85670; 85730; 93005; 93010; 93306; 93312; 93320; 93325; 93880; 96374; G0378; A9270-GY; J1644; J1815; J2250; J3010; J7040; Q9967